=== PATIENT | female | born 1955 | race Caucasian/White ===

== ENCOUNTER 2022-04-03 16:46 | Observation (INO) ==
[2022-04-03] MEDS ORDERED: IOPAMIDOL 100 ML BOTTLE IV ONE (16:47)
[2022-04-03 17:12] LABS: POC Calcium, Ionized 1.23 (1.16-1.32); POC Creatinine 0.7 (0.6-1.2); POC Potassium 3.4 (3.3-5.1)
[2022-04-03] MEDS ORDERED: NALOXONE HCL 0.4 MG/ML VIAL IV ONE ×2 (17:50→17:51)
[2022-04-03] MEDS ORDERED: LORazepam 2 MG/ML VIAL IV ONE ×2 (18:02→18:48)
[2022-04-03 18:05] LABS: Basophils # (Auto) 0.03 K/mcL (0.00-0.30); Basophils % (Auto) 0.5 % (0.0-2.0); Eosinophils # (Auto) 0.09 K/mcL (0.00-0.70); Eosinophils % (Auto) 1.5 % (0.0-7.0); Hematocrit 32.7 % (34.1-44.9); Hemoglobin 11.3 g/dL (11.2-15.7); Lymphocytes # (Auto) 2.11 K/mcL (1.50-4.80); Lymphocytes % (Auto) 34.3 % (15.5-49.0); Mean Cell Volume 92.9 fL (80.0-100.0); Mean Corpuscular HGB Conc 34.6 g/dL (31.0-36.0); Mean Platelet Volume 10.3 fL (8.8-12.5); Monocytes # (Auto) 0.49 K/mcL (0.10-0.90); Neutrophils % (Auto) 55.2 % (38.0-78.0); Platelet Count 198 K/mcL (140-440); RBC 3.52 M/mcL (3.59-5.38); Red Cell Distribution Width 15.2 % (11.5-14.5); WBC 6.2 K/mcL (4.5-11.0)
--- NOTE | 2022-04-03 18:05 | Cat Scan Report ---
CLINICAL INFORMATION: Acute mental status change COMPARISON: None. TECHNIQUE: 2.5 mm helical slices were obtained in the skull base to vertex. Following reconstruction, axial reformatted images were reviewed at bone and parenchymal windows. The exam was performed using radiation dose optimization techniques including, but not limited to, automated exposure control, adjustment of the mA and/or kV according to patient size and use of iterative reconstruction technique. FINDINGS: The ventricles, sulci, fissures, and cisterns are symmetrically enlarged compatible with mild age-related atrophy. No extra-axial fluid collections are identified. Mild patchy chronic ischemic changes, in the deep cerebral white matter, are expected for age. Small remote infarct seen seen in the left frontal lobe near vertex. There is no hemorrhage, mass effect, or edema. Bone windows show no osseous abnormality. IMPRESSION: Mild atrophy and chronic ischemic changes in the deep cerebral white matter-expected for age. 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 No intracranial hemorrhage or other acute finding Moderate cerumen the left external auditory meatus Interpreted and Authenticated by: Blayne Villaseñor 04/03/22
[2022-04-03 18:11] LABS: Amphetamine Screen,Urine None detected; Barbiturate Screen,Urine Suspect positive; Benzodiazepines Screen,Urine None detected; Cannabinoid Screen,Urine None detected; Cocaine Screen,Urine None detected; Opiate Screen,Urine None detected; Oxycodone, Urine Screen None detected; Phencyclidine Screen,Urine None detected
[2022-04-03 18:12] LABS: Appearance,Urine CLEAR (Clear); Bilirubin,Urine NEGATIVE (Negative); Color,Urine YELLOW; Culture Indicated,Urine yes; Glucose,Urine (UA) NEGATIVE (Negative); Ketones,Urine NEGATIVE (Negative); Leukocyte Esterase,Urine TRACE /uL (Negative); Mucus,Urine FEW /hpf; Nitrate,Urine NEGATIVE (Negative); Protein,Urine NEGATIVE (Negative); Urine Blood TRACE-LYSED ery/mcL (Negative); Urine RBC 5 /hpf (0-3); Urine Squamous Epithelial Cell 0 /hpf (0-4); Urine WBC 12 /hpf (0-4); Urobilinogen,Urine Normal
[2022-04-03 18:16] LABS: Alcohol, Blood < 10.0 mg/dL; Alcohol,Blood < 0.010 gm/dL (<0.010)
[2022-04-03 18:31] LABS: ALT/SGPT 11 U/L (<40); AST/SGOT 16 U/L (<32); Albumin 3.1 gm/dL (3.2-5.2); Alkaline Phosphatase 54 U/L (39-117); Bilirubin,Direct < 0.2 mg/dL (0-0.3); Bilirubin,Total 0.3 mg/dL (0.1-1.0); Globulin 2.3 gm/dL (2.2-3.7); Thyroid Stimulating Hormone 6.31 uIU/mL (0.27-5.01)
--- NOTE | 2022-04-03 19:27 | Emergency Department Note ---
HPI General Chief complaint: Psychiatric Symptoms Stated complaint: unresponsive Time Seen by Provider: 04/03/22 17:06 Source: EMS Mode of arrival: EMS History of Present Illness HPI Narrative: Narrative: Patient presents to the emergency department via EMS found unresponsive. The patient has been acting bizarrely for the last several days per her report. There is prior notes of the patient being in our emergency department 2 days ago for similar, less severe symptoms. It appears that the etiology was likely psychiatric. Patient was also seen at [facility] and was having bizarre, anglican fixations. Today patient is unresponsive she had normal blood glucose for EMS signs. Per report from the patient's son over the phone the patient does not have access to her own medications he has no concerns that she got into illicit substances or took excess of her prescribed medications. There has been no recent infectious symptoms patient was treated for urinary tract infection last week. Related Data Home Medications Medication Instructions Recorded Confirmed baclofen 10 mg tablet 10 mg PO Q8H PRN Pain 02/27/19 04/03/22 duloxetine 30 mg capsule,delayed 60 mg PO QDAY 02/27/19 04/03/22 release (Cymbalta) albuterol 90 mcg/actuation aerosol 90 mcg inhalation QID 04/03/22 04/03/22 inhaler allopurinol 300 mg tablet 300 mg PO QDAY 04/03/22 04/03/22 hydroxyzine HCl 25 mg tablet 25 mg PO TID PRN Anxiety 04/03/22 04/03/22 hydroxyzine HCl 25 mg tablet 25 mg PO TID PRN Anxiety 04/03/22 04/03/22 levothyroxine 137 mcg tablet 137 mcg PO QDAY 04/03/22 04/03/22 nitrofurantoin 100 mg capsule 100 mg PO BID 04/03/22 04/03/22 olmesartan 20 mg tablet 20 mg PO QDAY 04/03/22 04/03/22 pantoprazole 40 mg tablet,delayed 40 mg PO QDAY 04/03/22 04/03/22 release pantoprazole 40 mg tablet,delayed 40 mg PO QDAY 04/03/22 04/03/22 release primidone 50 mg tablet 50 mg PO TID 04/03/22 04/03/22 trazodone 50 mg tablet 50 mg PO QHS 04/03/22 04/03/22 Previous Rx's Medication Instructions Recorded hydrocodone 7.5 mg-acetaminophen 1 tab PO Q4H #150 tabs 03/12/19 325 mg tablet tramadol 50 mg tablet 50 mg PO QID PRN pain #240 tabs 03/12/19 Allergies Allergy/AdvReac Type Severity Reaction Status Date / Time Opioids - Morphine Analogues Allergy Severe Unknown Verified 03/21/22 17:40 latex Allergy Rash Verified 03/21/22 17:40 hydromorphone [From Dilaudid] AdvReac Unknown Other Verified 03/21/22 17:40 Codeine Sulfate Allergy Severe unknown Uncoded 06/16/21 16:35 Lyrica (Pregabalin Caps) Allergy Severe Dizziness, Uncoded 06/16/21 16:35 confusion band-aids AdvReac Rash Uncoded 06/16/21 16:35 Review of Systems ROS ROS Narrative: Narrative: Limitations: ROS unobtainable due to patients medical condition PFSH Narrative Patient History Narrative: Narrative: Medical/Surgical/Family History All Active Problems (Updated 04/04/22 @ 07:38 by Amish Chris MD) Nausea & vomiting (Acute) Fatigue (Acute) Dyspnea (Acute) Pain in toe (Acute) Adult failure to thrive (Acute) Catatonia (Acute) Viral syndrome (Acute) Chest pain (Acute) Acute pelvic pain (Acute) Excessive cerumen in both ear canals (Acute) Sinusitis, acute (Acute) Muscle spasm (Acute) Cellulitis of left foot (Acute) Left foot pain (Acute) Rib pain on right side (Acute) Hay fever (Chronic) Anxiety and depression (Chronic) Poor sleep (Chronic) Irritable bowel syndrome (Chronic) Benign hypertension (Chronic) GERD (gastroesophageal reflux disease) (Chronic) Vitamin D deficiency (Chronic) Chronic fatigue syndrome (Chronic) Abnormal weight loss (Chronic) Claudication of both lower extremities (Chronic) Osteoporosis of lumbar spine (Chronic) Dyspareunia (Chronic) Stomatitis (Chronic) Hyperglycemia (Chronic) Right knee pain (Chronic) Migraine (Chronic) Hypoglycemia (Chronic) Anemia (Chronic) Unspecified injury of thorax, initial encounter (Chronic) Bilateral ankle pain (Chronic) Double vision (Chronic) Right carpal tunnel syndrome (Chronic) Fibromyalgia (Chronic) Left eye pain (Chronic) Persistent headaches (Chronic) Acute low back pain (Chronic) Fatigue (Chronic) High risk medication use (Chronic) Chronic pain syndrome (Chronic) Anxiety reaction (Chronic) Pain in joint of right wrist (Chronic) Insomnia (Chronic) Restless leg syndrome (Chronic) Palpitations (Chronic) Prediabetes (Chronic) Hyperlipidemia (Chronic) Eczema (Chronic) B12 deficiency (Chronic) Hx of sleep apnea (Chronic) Memory deficit (Chronic) Dry eye syndrome, bilateral (Chronic) Medical History Abnormal weight loss Acute low back pain Anemia Anxiety and depression Anxiety reaction Arm fracture, left B12 deficiency Benign hypertension Bilateral ankle pain Chest pain Chronic fatigue syndrome Chronic pain syndrome Claudication of both lower extremities Double vision Dry eye syndrome, bilateral Dyspareunia Eczema Excessive cerumen in both ear canals Fatigue Fibromyalgia GERD (gastroesophageal reflux disease) Hay fever High risk medication use History of left heart catheterization (09/24/18) Outpatient, [facility] Hx of sleep apnea Hyperglycemia Hyperlipidemia Hypoglycemia Insomnia Irritable bowel syndrome Left eye pain Lower abdominal pain Memory deficit Migraine Nausea alone Osteoporosis of lumbar spine Pain in joint of right wrist Pain in right ankle and joints of right foot Palpitations Persistent headaches Poor sleep Prediabetes Restless leg syndrome Right carpal tunnel syndrome Right knee pain Sinusitis, acute Stomatitis Unspecified injury of thorax, initial encounter Viral syndrome Vitamin D deficiency Surgical History History of bladder surgery History of carpal tunnel surgery of left wrist (~2011) History of carpal tunnel surgery of right wrist (~2011) History of gastric bypass (~2007) History of hysterectomy (~1993) Family History Mother , age 74 Osteoporosis Myocardial infarction Father , age 73 High blood pressure Kidney disease Heart disease Grandmother Glaucoma maternal Heart disease maternal High blood pressure maternal Diabetes maternal Social History Smoking Status: Former smoker Alcohol Intake Frequency: does not drink Substance Use: does not use Exam Narrative Narrative: Narrative: Vital signs noted General: Unresponsive, eyes are closed HEENT: NCAT pupils 5 mm equal round reactive to light symmetrically Neck: Supple, trachea midline Cardiovascular: RRR. No murmur. No rubs. No gallops. Respiratory: No respiratory distress. Breath sounds equal. Lungs clear. Gastrointestinal: Soft. No tenderness Musculoskeletal: No pain. No soft tissue swelling. Good ROM. No signs injury Skin: Warm. Dry. No rash Neurologic: Patient has normal symmetric patellar reflexes there is no clonus at the ankle, patient does not open her eyes and she resists eyelid opening. She has apparent flaccidity to all 4 affected extremities. Course Vital Signs Vital signs: Vital Signs Temperature 99.1 F H 04/03/22 16:53 Pulse Rate 70 04/03/22 16:53 Respiratory Rate 14 04/03/22 16:53 Blood Pressure 198/80 04/03/22 16:53 Pulse Oximetry (%) 98 04/03/22 16:53 Oxygen Delivery Method 04/03/22 16:53 Temperature 99.1 F H 04/03/22 16:53 Pulse Rate 88 04/04/22 15:47 Respiratory Rate 16 04/04/22 13:54 Blood Pressure 147/73 04/04/22 15:00 Pulse Oximetry (%) 93 04/04/22 15:47 Oxygen Delivery Method 04/03/22 16:53 MDM MDM Narrative Medical decision making narrative: Narrative: Patient presents to the emergency department with unresponsiveness. She has normal electrolytes venous blood gas and vital signs. Patient's CT scan of her brain shows no acute findings she does have a remote infarct. Differential includes but is not limited to CVA, intracranial hemorrhage, catato melida, occult infection, medication overdose. Review of patient's prior labs felt that her symptoms are likely related to catatonia after initial medical work-up had been unremarkable. The patient was given 1 mg of Ativan and would shake her head when asked questions she would also squeeze hands, she would wiggle her bilateral toes. She still would not open her eyes when commanded. Patient will likely need extensive psychiatric consultation. Patient is signed out to oncoming physician. Lab Data Result diagrams: 04/03/22 17:27 Labs: Lab Results 04/03/22 04/03/22 04/03/22 Range/Units 17:07 17:08 17:25 WBC (4.5-11.0) K/mcL RBC (3.59-5.38) M/mcL Hgb (11.2-15.7) g/dL Hct (34.1-44.9) % POC Hct 35.0 L (36-48) MCV (80.0-100.0) fL MCH (26.0-34.0) pg MCHC (31.0-36.0) g/dL RDW (11.5-14.5) % Plt Count (140-440) K/mcL MPV (8.8-12.5) fL Immature Gran % (Auto) (0.0-0.5) % Neut % (Auto) (38.0-78.0) % Lymph % (Auto) (15.5-49.0) % [place] % (Auto) (1.0-12.0) % Eos % (Auto) (0.0-7.0) % Baso % (Auto) (0.0-2.0) % Lymph # (Auto) (1.50-4.80) K/mcL [place] # (Auto) (0.10-0.90) K/mcL Eos # (Auto) (0.00-0.70) K/mcL Baso # (Auto) (0.00-0.30) K/mcL Immature Gran # (0.00-0.05) K/mcl Absolute Neutrophils (1.80-8.00) K/mcL POC VBG pH 7.39 (7.32-7.42) POC VBG pCO2 at Temp 48.7 (41-51) POC VBG pO2 25 (25-40) POC VBG HCO3 29.5 H (24-28) POC VBG Total CO2 31.0 H (25-29) POC Venous O2 Sat 43.0 (40-70) POC VBG Base Excess 5.0 H* (-2-2) VBG Lactic Acid 0.7 (0.5-2) POC Sodium 136 (133-145) POC Potassium 3.4 (3.3-5.1) POC Chloride 97 (96-108) POC Total CO2 28.0 (22-30) POC BUN 8 (6-20) POC Creatinine 0.7 (0.6-1.2) POC Glucose 88 (70-105) POC WB Ioniz Calcium 1.23 (1.16-1.32) Total Bilirubin (0.1-1.0) mg/dL Direct Bilirubin (0-0.3) mg/dL AST (<32) U/L ALT (<40) U/L Alkaline Phosphatase (39-117) U/L Ammonia (11-51) umol/L Troponin T (<0.03) ng/mL Total Protein (5.9-8.4) gm/dL Albumin (3.2-5.2) gm/dL Globulin (2.2-3.7) gm/dL Lipase (7-60) U/L TSH (0.27-5.01) uIU/mL Urine Color Urine Appearance (Clear) Urine pH (5.0-9.0) Ur Specific Bishop (1.000-1.035) Urine Protein (Negative) mg/dL Urine Glucose (UA) (Negative) mg/dL Urine Ketones (Negative) mg/dL Urine Occult Blood (Negative) lili/mcL Urine Nitrate (Negative) Urine Bilirubin (Negative) mg/dL Urine Urobilinogen mg/dL Ur Leukocyte Esterase (Negative) /uL Urine RBC (0-3) /hpf Urine WBC (0-4) /hpf Ur Squamous Epith Cells (0-4) /hpf Urine Bacteria (0) /hpf Urine Mucus (None) /hpf Ur Culture Indicated? Urine Opiates Screen Ur Opiates Confirm Ur Oxycodone Screen U Oxycod/Oxymor Confirm Urine Methadone Screen Ur Methadone Confirm Ur Barbiturates Screen Ur Phencyclidine Scrn Urine PCP Confirm Ur Amphetamines Screen U Amphetamines Confirm U Benzodiazepines Scrn Ur Benzodiazepine, Qnt Urine Cocaine Screen Urine Cocaine Confirm U Cannabinoids Confirm U Marijuana (THC) Screen Ethyl Alcohol mg/dL mg/dL Ethyl Alcohol g/dL (<0.010) gm/dL POC Troponin I < 0.02 (0.00-0.08) 04/03/22 04/03/22 04/03/22 Range/Units 17:26 17:27 17:27 WBC 6.2 (4.5-11.0) K/mcL RBC 3.52 L (3.59-5.38) M/mcL Hgb 11.3 (11.2-15.7) g/dL Hct 32.7 L (34.1-44.9) % POC Hct (36-48) MCV 92.9 (80.0-100.0) fL MCH 32.1 (26.0-34.0) pg MCHC 34.6 (31.0-36.0) g/dL RDW 15.2 H (11.5-14.5) % Plt Count 198 (140-440) K/mcL MPV 10.3 (8.8-12.5) fL Immature Gran % (Auto) 0.5 (0.0-0.5) % Neut % (Auto) 55.2 (38.0-78.0) % Lymph % (Auto) 34.3 (15.5-49.0) % [place] % (Auto) 8.0 (1.0-12.0) % Eos % (Auto) 1.5 (0.0-7.0) % Baso % (Auto) 0.5 (0.0-2.0) % Lymph # (Auto) 2.11 (1.50-4.80) K/mcL [place] # (Auto) 0.49 (0.10-0.90) K/mcL Eos # (Auto) 0.09 (0.00-0.70) K/mcL Baso # (Auto) 0.03 (0.00-0.30) K/mcL Immature Gran # 0.03 (0.00-0.05) K/mcl Absolute Neutrophils 3.40 (1.80-8.00) K/mcL POC VBG pH (7.32-7.42) POC VBG pCO2 at Temp (41-51) POC VBG pO2 (25-40) POC VBG HCO3 (24-28) POC VBG Total CO2 (25-29) POC Venous O2 Sat (40-70) POC VBG Base Excess (-2-2) VBG Lactic Acid (0.5-2) POC Sodium (133-145) POC Potassium (3.3-5.1) POC Chloride (96-108) POC Total CO2 (22-30) POC BUN (6-20) POC Creatinine (0.6-1.2) POC Glucose (70-105) POC WB Ioniz Calcium (1.16-1.32) Total Bilirubin (0.1-1.0) mg/dL Direct Bilirubin (0-0.3) mg/dL AST (<32) U/L ALT (<40) U/L Alkaline Phosphatase (39-117) U/L Ammonia (11-51) umol/L Troponin T < 0.01 (<0.03) ng/mL Total Protein (5.9-8.4) gm/dL Albumin (3.2-5.2) gm/dL Globulin (2.2-3.7) gm/dL Lipase (7-60) U/L TSH (0.27-5.01) uIU/mL Urine Color Urine Appearance (Clear) Urine pH (5.0-9.0) Ur Specific Bishop (1.000-1.035) Urine Protein (Negative) mg/dL Urine Glucose (UA) (Negative) mg/dL Urine Ketones (Negative) mg/dL Urine Occult Blood (Negative) lili/mcL Urine Nitrate (Negative) Urine Bilirubin (Negative) mg/dL Urine Urobilinogen mg/dL Ur Leukocyte Esterase (Negative) /uL Urine RBC (0-3) /hpf Urine WBC (0-4) /hpf Ur Squamous Epith Cells (0-4) /hpf Urine Bacteria (0) /hpf Urine Mucus (None) /hpf Ur Culture Indicated? Urine Opiates Screen Ur Opiates Confirm Ur Oxycodone Screen U Oxycod/Oxymor Confirm Urine Methadone Screen Ur Methadone Confirm Ur Barbiturates Screen Ur Phencyclidine Scrn Urine PCP Confirm Ur Amphetamines Screen U Amphetamines Confirm U Benzodiazepines Scrn Ur Benzodiazepine, Qnt Urine Cocaine Screen Urine Cocaine Confirm U Cannabinoids Confirm U Marijuana (THC) Screen Ethyl Alcohol mg/dL < 10.0 mg/dL Ethyl Alcohol g/dL < 0.010 (<0.010) gm/dL POC Troponin I (0.00-0.08) 04/03/22 04/03/22 04/03/22 Range/Units 17:27 17:32 17:39 WBC (4.5-11.0) K/mcL RBC (3.59-5.38) M/mcL Hgb (11.2-15.7) g/dL Hct (34.1-44.9) % POC Hct (36-48) MCV (80.0-100.0) fL MCH (26.0-34.0) pg MCHC (31.0-36.0) g/dL RDW (11.5-14.5) % Plt Count (140-440) K/mcL MPV (8.8-12.5) fL Immature Gran % (Auto) (0.0-0.5) % Neut % (Auto) (38.0-78.0) % Lymph % (Auto) (15.5-49.0) % [place] % (Auto) (1.0-12.0) % Eos % (Auto) (0.0-7.0) % Baso % (Auto) (0.0-2.0) % Lymph # (Auto) (1.50-4.80) K/mcL [place] # (Auto) (0.10-0.90) K/mcL Eos # (Auto) (0.00-0.70) K/mcL Baso # (Auto) (0.00-0.30) K/mcL Immature Gran # (0.00-0.05) K/mcl Absolute Neutrophils (1.80-8.00) K/mcL POC VBG pH (7.32-7.42) POC VBG pCO2 at Temp (41-51) POC VBG pO2 (25-40) POC VBG HCO3 (24-28) POC VBG Total CO2 (25-29) POC Venous O2 Sat (40-70) POC VBG Base Excess (-2-2) VBG Lactic Acid (0.5-2) POC Sodium (133-145) POC Potassium (3.3-5.1) POC Chloride (96-108) POC Total CO2 (22-30) POC BUN (6-20) POC Creatinine (0.6-1.2) POC Glucose (70-105) POC WB Ioniz Calcium (1.16-1.32) Total Bilirubin 0.3 (0.1-1.0) mg/dL Direct Bilirubin < 0.2 (0-0.3) mg/dL AST 16 (<32) U/L ALT 11 (<40) U/L Alkaline Phosphatase 54 (39-117) U/L Ammonia (11-51) umol/L Troponin T (<0.03) ng/mL Total Protein 5.4 L (5.9-8.4) gm/dL Albumin 3.1 L (3.2-5.2) gm/dL Globulin 2.3 (2.2-3.7) gm/dL Lipase 26 (7-60) U/L TSH 6.31 H (0.27-5.01) uIU/mL Urine Color Yellow Urine Appearance Clear (Clear) Urine pH 6.0 (5.0-9.0) Ur Specific Bishop 1.010 (1.000-1.035) Urine Protein Negative (Negative) mg/dL Urine Glucose (UA) Negative (Negative) mg/dL Urine Ketones Negative (Negative) mg/dL Urine Occult Blood Trace-lysed A (Negative) lili/mcL Urine Nitrate Negative (Negative) Urine Bilirubin Negative (Negative) mg/dL Urine Urobilinogen Normal mg/dL Ur Leukocyte Esterase Trace A (Negative) /uL Urine RBC 5 H (0-3) /hpf Urine WBC 12 H (0-4) /hpf Ur Squamous Epith Cells 0 (0-4) /hpf Urine Bacteria None (0) /hpf Urine Mucus Few A (None) /hpf Ur Culture Indicated? yes Urine Opiates Screen None detected Ur Opiates Confirm TNP Ur Oxycodone Screen None detected U Oxycod/Oxymor Confirm TNP Urine Methadone Screen None detected Ur Methadone Confirm TNP Ur Barbiturates Screen Suspect positive A Ur Phencyclidine Scrn None detected Urine PCP Confirm TNP Ur Amphetamines Screen None detected U Amphetamines Confirm TNP U Benzodiazepines Scrn None detected Ur Benzodiazepine, Qnt TNP Urine Cocaine Screen None detected Urine Cocaine Confirm TNP U Cannabinoids Confirm TNP U Marijuana (THC) Screen None detected Ethyl Alcohol mg/dL mg/dL Ethyl Alcohol g/dL (<0.010) gm/dL POC Troponin I (0.00-0.08) 04/03/22 Range/Units 18:09 WBC (4.5-11.0) K/mcL RBC (3.59-5.38) M/mcL Hgb (11.2-15.7) g/dL Hct (34.1-44.9) % POC Hct (36-48) MCV (80.0-100.0) fL MCH (26.0-34.0) pg MCHC (31.0-36.0) g/dL RDW (11.5-14.5) % Plt Count (140-440) K/mcL MPV (8.8-12.5) fL Immature Gran % (Auto) (0.0-0.5) % Neut % (Auto) (38.0-78.0) % Lymph % (Auto) (15.5-49.0) % [place] % (Auto) (1.0-12.0) % Eos % (Auto) (0.0-7.0) % Baso % (Auto) (0.0-2.0) % Lymph # (Auto) (1.50-4.80) K/mcL [place] # (Auto) (0.10-0.90) K/mcL Eos # (Auto) (0.00-0.70) K/mcL Baso # (Auto) (0.00-0.30) K/mcL Immature Gran # (0.00-0.05) K/mcl Absolute Neutrophils (1.80-8.00) K/mcL POC VBG pH (7.32-7.42) POC VBG pCO2 at Temp (41-51) POC VBG pO2 (25-40) POC VBG HCO3 (24-28) POC VBG Total CO2 (25-29) POC Venous O2 Sat (40-70) POC VBG Base Excess (-2-2) VBG Lactic Acid (0.5-2) POC Sodium (133-145) POC Potassium (3.3-5.1) POC Chloride (96-108) POC Total CO2 (22-30) POC BUN (6-20) POC Creatinine (0.6-1.2) POC Glucose (70-105) POC WB Ioniz Calcium (1.16-1.32) Total Bilirubin (0.1-1.0) mg/dL Direct Bilirubin (0-0.3) mg/dL AST (<32) U/L ALT (<40) U/L Alkaline Phosphatase (39-117) U/L Ammonia 14 (11-51) umol/L Troponin T (<0.03) ng/mL Total Protein (5.9-8.4) gm/dL Albumin (3.2-5.2) gm/dL Globulin (2.2-3.7) gm/dL Lipase (7-60) U/L TSH (0.27-5.01) uIU/mL Urine Color Urine Appearance (Clear) Urine pH (5.0-9.0) Ur Specific Bishop (1.000-1.035) Urine Protein (Negative) mg/dL Urine Glucose (UA) (Negative) mg/dL Urine Ketones (Negative) mg/dL Urine Occult Blood (Negative) lili/mcL Urine Nitrate (Negative) Urine Bilirubin (Negative) mg/dL Urine Urobilinogen mg/dL Ur Leukocyte Esterase (Negative) /uL Urine RBC (0-3) /hpf Urine WBC (0-4) /hpf Ur Squamous Epith Cells (0-4) /hpf Urine Bacteria (0) /hpf Urine Mucus (None) /hpf Ur Culture Indicated? Urine Opiates Screen Ur Opiates Confirm Ur Oxycodone Screen U Oxycod/Oxymor Confirm Urine Methadone Screen Ur Methadone Confirm Ur Barbiturates Screen Ur Phencyclidine Scrn Urine PCP Confirm Ur Amphetamines Screen U Amphetamines Confirm U Benzodiazepines Scrn Ur Benzodiazepine, Qnt Urine Cocaine Screen Urine Cocaine Confirm U Cannabinoids Confirm U Marijuana (THC) Screen Ethyl Alcohol mg/dL mg/dL Ethyl Alcohol g/dL (<0.010) gm/dL POC Troponin I (0.00-0.08) ED POC Tests ED POC Tests: CHRISTOPHER - SARS Antigen Negative Discharge Plan Patient/Caregiver Discharge Instructions Pt seen by [employer]/[facility] only: No Clinical Impression: Catatonia Patient Disposition: Still a Patient Condition: Critical Follow up with: Chandan Sharpe MD [Primary Care Provider] - Prescriptions: No Action hydrocodone-acetaminophen 7.5-325 mg tablet 1 tab PO Q4H Qty: 150 0RF Rx Instructions: Max 5 a day tramadol 50 mg tablet 50 mg PO QID PRN (Reason: pain) Qty: 240 0RF duloxetine [Cymbalta] 30 mg capsule,delayed release(DR/EC) 60 mg PO QDAY Rx Instructions: 30 mg (3 caps) PO daily; baclofen 10 mg tablet 10 mg PO Q8H PRN (Reason: Pain) primidone 50 mg Tablet 50 mg PO TID levothyroxine 137 mcg Tablet 137 mcg PO QDAY trazodone 50 mg Tablet 50 mg PO QHS nitrofurantoin 100 mg Capsule 100 mg PO BID Rx Instructions: must administer with a meal/food pantoprazole 40 mg Tablet,Delayed Release (Dr/Ec) 40 mg PO QDAY pantoprazole 40 mg Tablet,Delayed Release (Dr/Ec) 40 mg PO QDAY hydroxyzine HCl 25 mg Tablet 25 mg PO TID PRN (Reason: Anxiety) hydroxyzine HCl 25 mg Tablet 25 mg PO TID PRN (Reason: Anxiety) allopurinol 300 mg Tablet 300 mg PO QDAY albuterol 90 mcg/actuation Aerosol 90 mcg INHALATION QID olmesartan 20 mg Tablet 20 mg PO QDAY
--- NOTE | 2022-04-03 19:57 | Emergency Department Note ---
Course Course Course Narrative: Patient is a 66-year-old female signed out to me by Dr. Harding. Briefly, patient presented mostly unresponsive. Her work-up mostly unremarkable other than a mildly elevated TSH, trace leukocyte esterase, and barbiturates on UDS. There was concern for catatonia, so patient was given Ativan and did have some improvement. She was given another dose with further improvement. Patient was then signed out to me. Vital Signs Vital signs: Vital Signs Temperature 99.1 F H 04/03/22 16:53 Pulse Rate 70 04/03/22 16:53 Respiratory Rate 14 04/03/22 16:53 Blood Pressure 198/80 04/03/22 16:53 Pulse Oximetry (%) 98 04/03/22 16:53 Oxygen Delivery Method 04/03/22 16:53 Temperature 99.1 F H 04/03/22 16:53 Pulse Rate 62 04/04/22 07:07 Respiratory Rate 18 04/04/22 07:07 Blood Pressure 158/76 04/04/22 06:31 Pulse Oximetry (%) 94 04/04/22 07:07 Oxygen Delivery Method 04/03/22 16:53 MDM MDM Narrative Medical decision making narrative: Narrative: Patient is a 66-year-old female who presented due to being mostly unresponsive. [facility] was called due to previous concern for catatonia, with intermittent visit to [facility] with same concerns, and return here with patient's unresponsiveness. They stated that they are reaching out to inpatient psych facilities due to concern for catatonia. Patient is pending placement. Patient has been signed out to Dr. Goddard. Lab Data Result diagrams: 04/03/22 17:27 Labs: Lab Results 04/03/22 04/03/22 04/03/22 Range/Units 17:07 17:08 17:25 WBC (4.5-11.0) K/mcL RBC (3.59-5.38) M/mcL Hgb (11.2-15.7) g/dL Hct (34.1-44.9) % POC Hct 35.0 L (36-48) MCV (80.0-100.0) fL MCH (26.0-34.0) pg MCHC (31.0-36.0) g/dL RDW (11.5-14.5) % Plt Count (140-440) K/mcL MPV (8.8-12.5) fL Immature Gran % (Auto) (0.0-0.5) % Neut % (Auto) (38.0-78.0) % Lymph % (Auto) (15.5-49.0) % [place] % (Auto) (1.0-12.0) % Eos % (Auto) (0.0-7.0) % Baso % (Auto) (0.0-2.0) % Lymph # (Auto) (1.50-4.80) K/mcL [place] # (Auto) (0.10-0.90) K/mcL Eos # (Auto) (0.00-0.70) K/mcL Baso # (Auto) (0.00-0.30) K/mcL Immature Gran # (0.00-0.05) K/mcl Absolute Neutrophils (1.80-8.00) K/mcL POC VBG pH 7.39 (7.32-7.42) POC VBG pCO2 at Temp 48.7 (41-51) POC VBG pO2 25 (25-40) POC VBG HCO3 29.5 H (24-28) POC VBG Total CO2 31.0 H (25-29) POC Venous O2 Sat 43.0 (40-70) POC VBG Base Excess 5.0 H* (-2-2) VBG Lactic Acid 0.7 (0.5-2) POC Sodium 136 (133-145) POC Potassium 3.4 (3.3-5.1) POC Chloride 97 (96-108) POC Total CO2 28.0 (22-30) POC BUN 8 (6-20) POC Creatinine 0.7 (0.6-1.2) POC Glucose 88 (70-105) POC WB Ioniz Calcium 1.23 (1.16-1.32) Total Bilirubin (0.1-1.0) mg/dL Direct Bilirubin (0-0.3) mg/dL AST (<32) U/L ALT (<40) U/L Alkaline Phosphatase (39-117) U/L Ammonia (11-51) umol/L Troponin T (<0.03) ng/mL Total Protein (5.9-8.4) gm/dL Albumin (3.2-5.2) gm/dL Globulin (2.2-3.7) gm/dL Lipase (7-60) U/L TSH (0.27-5.01) uIU/mL Urine Color Urine Appearance (Clear) Urine pH (5.0-9.0) Ur Specific [place] (1.000-1.035) Urine Protein (Negative) mg/dL Urine Glucose (UA) (Negative) mg/dL Urine Ketones (Negative) mg/dL Urine Occult Blood (Negative) lili/mcL Urine Nitrate (Negative) Urine Bilirubin (Negative) mg/dL Urine Urobilinogen mg/dL Ur Leukocyte Esterase (Negative) /uL Urine RBC (0-3) /hpf Urine WBC (0-4) /hpf Ur Squamous Epith Cells (0-4) /hpf Urine Bacteria (0) /hpf Urine Mucus (None) /hpf Ur Culture Indicated? Urine Opiates Screen Ur Opiates Confirm Ur Oxycodone Screen U Oxycod/Oxymor Confirm Urine Methadone Screen Ur Methadone Confirm Ur Barbiturates Screen Ur Phencyclidine Scrn Urine PCP Confirm Ur Amphetamines Screen U Amphetamines Confirm U Benzodiazepines Scrn Ur Benzodiazepine, Qnt Urine Cocaine Screen Urine Cocaine Confirm U Cannabinoids Confirm U Marijuana (THC) Screen Ethyl Alcohol mg/dL mg/dL Ethyl Alcohol g/dL (<0.010) gm/dL POC Troponin I < 0.02 (0.00-0.08) 04/03/22 04/03/22 04/03/22 Range/Units 17:26 17:27 17:27 WBC 6.2 (4.5-11.0) K/mcL RBC 3.52 L (3.59-5.38) M/mcL Hgb 11.3 (11.2-15.7) g/dL Hct 32.7 L (34.1-44.9) % POC Hct (36-48) MCV 92.9 (80.0-100.0) fL MCH 32.1 (26.0-34.0) pg MCHC 34.6 (31.0-36.0) g/dL RDW 15.2 H (11.5-14.5) % Plt Count 198 (140-440) K/mcL MPV 10.3 (8.8-12.5) fL Immature Gran % (Auto) 0.5 (0.0-0.5) % Neut % (Auto) 55.2 (38.0-78.0) % Lymph % (Auto) 34.3 (15.5-49.0) % [place] % (Auto) 8.0 (1.0-12.0) % Eos % (Auto) 1.5 (0.0-7.0) % Baso % (Auto) 0.5 (0.0-2.0) % Lymph # (Auto) 2.11 (1.50-4.80) K/mcL [place] # (Auto) 0.49 (0.10-0.90) K/mcL Eos # (Auto) 0.09 (0.00-0.70) K/mcL Baso # (Auto) 0.03 (0.00-0.30) K/mcL Immature Gran # 0.03 (0.00-0.05) K/mcl Absolute Neutrophils 3.40 (1.80-8.00) K/mcL POC VBG pH (7.32-7.42) POC VBG pCO2 at Temp (41-51) POC VBG pO2 (25-40) POC VBG HCO3 (24-28) POC VBG Total CO2 (25-29) POC Venous O2 Sat (40-70) POC VBG Base Excess (-2-2) VBG Lactic Acid (0.5-2) POC Sodium (133-145) POC Potassium (3.3-5.1) POC Chloride (96-108) POC Total CO2 (22-30) POC BUN (6-20) POC Creatinine (0.6-1.2) POC Glucose (70-105) POC WB Ioniz Calcium (1.16-1.32) Total Bilirubin (0.1-1.0) mg/dL Direct Bilirubin (0-0.3) mg/dL AST (<32) U/L ALT (<40) U/L Alkaline Phosphatase (39-117) U/L Ammonia (11-51) umol/L Troponin T < 0.01 (<0.03) ng/mL Total Protein (5.9-8.4) gm/dL Albumin (3.2-5.2) gm/dL Globulin (2.2-3.7) gm/dL Lipase (7-60) U/L TSH (0.27-5.01) uIU/mL Urine Color Urine Appearance (Clear) Urine pH (5.0-9.0) Ur Specific [place] (1.000-1.035) Urine Protein (Negative) mg/dL Urine Glucose (UA) (Negative) mg/dL Urine Ketones (Negative) mg/dL Urine Occult Blood (Negative) lili/mcL Urine Nitrate (Negative) Urine Bilirubin (Negative) mg/dL Urine Urobilinogen mg/dL Ur Leukocyte Esterase (Negative) /uL Urine RBC (0-3) /hpf Urine WBC (0-4) /hpf Ur Squamous Epith Cells (0-4) /hpf Urine Bacteria (0) /hpf Urine Mucus (None) /hpf Ur Culture Indicated? Urine Opiates Screen Ur Opiates Confirm Ur Oxycodone Screen U Oxycod/Oxymor Confirm Urine Methadone Screen Ur Methadone Confirm Ur Barbiturates Screen Ur Phencyclidine Scrn Urine PCP Confirm Ur Amphetamines Screen U Amphetamines Confirm U Benzodiazepines Scrn Ur Benzodiazepine, Qnt Urine Cocaine Screen Urine Cocaine Confirm U Cannabinoids Confirm U Marijuana (THC) Screen Ethyl Alcohol mg/dL < 10.0 mg/dL Ethyl Alcohol g/dL < 0.010 (<0.010) gm/dL POC Troponin I (0.00-0.08) 04/03/22 04/03/22 04/03/22 Range/Units 17:27 17:32 17:39 WBC (4.5-11.0) K/mcL RBC (3.59-5.38) M/mcL Hgb (11.2-15.7) g/dL Hct (34.1-44.9) % POC Hct (36-48) MCV (80.0-100.0) fL MCH (26.0-34.0) pg MCHC (31.0-36.0) g/dL RDW (11.5-14.5) % Plt Count (140-440) K/mcL MPV (8.8-12.5) fL Immature Gran % (Auto) (0.0-0.5) % Neut % (Auto) (38.0-78.0) % Lymph % (Auto) (15.5-49.0) % [place] % (Auto) (1.0-12.0) % Eos % (Auto) (0.0-7.0) % Baso % (Auto) (0.0-2.0) % Lymph # (Auto) (1.50-4.80) K/mcL [place] # (Auto) (0.10-0.90) K/mcL Eos # (Auto) (0.00-0.70) K/mcL Baso # (Auto) (0.00-0.30) K/mcL Immature Gran # (0.00-0.05) K/mcl Absolute Neutrophils (1.80-8.00) K/mcL POC VBG pH (7.32-7.42) POC VBG pCO2 at Temp (41-51) POC VBG pO2 (25-40) POC VBG HCO3 (24-28) POC VBG Total CO2 (25-29) POC Venous O2 Sat (40-70) POC VBG Base Excess (-2-2) VBG Lactic Acid (0.5-2) POC Sodium (133-145) POC Potassium (3.3-5.1) POC Chloride (96-108) POC Total CO2 (22-30) POC BUN (6-20) POC Creatinine (0.6-1.2) POC Glucose (70-105) POC WB Ioniz Calcium (1.16-1.32) Total Bilirubin 0.3 (0.1-1.0) mg/dL Direct Bilirubin < 0.2 (0-0.3) mg/dL AST 16 (<32) U/L ALT 11 (<40) U/L Alkaline Phosphatase 54 (39-117) U/L Ammonia (11-51) umol/L Troponin T (<0.03) ng/mL Total Protein 5.4 L (5.9-8.4) gm/dL Albumin 3.1 L (3.2-5.2) gm/dL Globulin 2.3 (2.2-3.7) gm/dL Lipase 26 (7-60) U/L TSH 6.31 H (0.27-5.01) uIU/mL Urine Color Yellow Urine Appearance Clear (Clear) Urine pH 6.0 (5.0-9.0) Ur Specific [place] 1.010 (1.000-1.035) Urine Protein Negative (Negative) mg/dL Urine Glucose (UA) Negative (Negative) mg/dL Urine Ketones Negative (Negative) mg/dL Urine Occult Blood Trace-lysed A (Negative) lili/mcL Urine Nitrate Negative (Negative) Urine Bilirubin Negative (Negative) mg/dL Urine Urobilinogen Normal mg/dL Ur Leukocyte Esterase Trace A (Negative) /uL Urine RBC 5 H (0-3) /hpf Urine WBC 12 H (0-4) /hpf Ur Squamous Epith Cells 0 (0-4) /hpf Urine Bacteria None (0) /hpf Urine Mucus Few A (None) /hpf Ur Culture Indicated? yes Urine Opiates Screen None detected Ur Opiates Confirm TNP Ur Oxycodone Screen None detected U Oxycod/Oxymor Confirm TNP Urine Methadone Screen None detected Ur Methadone Confirm TNP Ur Barbiturates Screen Suspect positive A Ur Phencyclidine Scrn None detected Urine PCP Confirm TNP Ur Amphetamines Screen None detected U Amphetamines Confirm TNP U Benzodiazepines Scrn None detected Ur Benzodiazepine, Qnt TNP Urine Cocaine Screen None detected Urine Cocaine Confirm TNP U Cannabinoids Confirm TNP U Marijuana (THC) Screen None detected Ethyl Alcohol mg/dL mg/dL Ethyl Alcohol g/dL (<0.010) gm/dL POC Troponin I (0.00-0.08) 04/03/22 Range/Units 18:09 WBC (4.5-11.0) K/mcL RBC (3.59-5.38) M/mcL Hgb (11.2-15.7) g/dL Hct (34.1-44.9) % POC Hct (36-48) MCV (80.0-100.0) fL MCH (26.0-34.0) pg MCHC (31.0-36.0) g/dL RDW (11.5-14.5) % Plt Count (140-440) K/mcL MPV (8.8-12.5) fL Immature Gran % (Auto) (0.0-0.5) % Neut % (Auto) (38.0-78.0) % Lymph % (Auto) (15.5-49.0) % [place] % (Auto) (1.0-12.0) % Eos % (Auto) (0.0-7.0) % Baso % (Auto) (0.0-2.0) % Lymph # (Auto) (1.50-4.80) K/mcL [place] # (Auto) (0.10-0.90) K/mcL Eos # (Auto) (0.00-0.70) K/mcL Baso # (Auto) (0.00-0.30) K/mcL Immature Gran # (0.00-0.05) K/mcl Absolute Neutrophils (1.80-8.00) K/mcL POC VBG pH (7.32-7.42) POC VBG pCO2 at Temp (41-51) POC VBG pO2 (25-40) POC VBG HCO3 (24-28) POC VBG Total CO2 (25-29) POC Venous O2 Sat (40-70) POC VBG Base Excess (-2-2) VBG Lactic Acid (0.5-2) POC Sodium (133-145) POC Potassium (3.3-5.1) POC Chloride (96-108) POC Total CO2 (22-30) POC BUN (6-20) POC Creatinine (0.6-1.2) POC Glucose (70-105) POC WB Ioniz Calcium (1.16-1.32) Total Bilirubin (0.1-1.0) mg/dL Direct Bilirubin (0-0.3) mg/dL AST (<32) U/L ALT (<40) U/L Alkaline Phosphatase (39-117) U/L Ammonia 14 (11-51) umol/L Troponin T (<0.03) ng/mL Total Protein (5.9-8.4) gm/dL Albumin (3.2-5.2) gm/dL Globulin (2.2-3.7) gm/dL Lipase (7-60) U/L TSH (0.27-5.01) uIU/mL Urine Color Urine Appearance (Clear) Urine pH (5.0-9.0) Ur Specific [place] (1.000-1.035) Urine Protein (Negative) mg/dL Urine Glucose (UA) (Negative) mg/dL Urine Ketones (Negative) mg/dL Urine Occult Blood (Negative) lili/mcL Urine Nitrate (Negative) Urine Bilirubin (Negative) mg/dL Urine Urobilinogen mg/dL Ur Leukocyte Esterase (Negative) /uL Urine RBC (0-3) /hpf Urine WBC (0-4) /hpf Ur Squamous Epith Cells (0-4) /hpf Urine Bacteria (0) /hpf Urine Mucus (None) /hpf Ur Culture Indicated? Urine Opiates Screen Ur Opiates Confirm Ur Oxycodone Screen U Oxycod/Oxymor Confirm Urine Methadone Screen Ur Methadone Confirm Ur Barbiturates Screen Ur Phencyclidine Scrn Urine PCP Confirm Ur Amphetamines Screen U Amphetamines Confirm U Benzodiazepines Scrn Ur Benzodiazepine, Qnt Urine Cocaine Screen Urine Cocaine Confirm U Cannabinoids Confirm U Marijuana (THC) Screen Ethyl Alcohol mg/dL mg/dL Ethyl Alcohol g/dL (<0.010) gm/dL POC Troponin I (0.00-0.08) ED POC Tests ED POC Tests: CHRISTOPHER - SARS Antigen Negative Discharge Plan Patient/Caregiver Discharge Instructions Pt seen by RECORDING CLERK/PA only: No Clinical Impression: Catatonia Patient Disposition: Still a Patient Follow up with: Chandan Sharpe MD [Primary Care Provider] - Prescriptions: No Action hydrocodone-acetaminophen 7.5-325 mg tablet 1 tab PO Q4H Qty: 150 0RF Rx Instructions: Max 5 a day tramadol 50 mg tablet 50 mg PO QID PRN (Reason: pain) Qty: 240 0RF duloxetine [Cymbalta] 30 mg capsule,delayed release(DR/EC) 60 mg PO QDAY Rx Instructions: 30 mg (3 caps) PO daily; baclofen 10 mg tablet 10 mg PO Q8H PRN (Reason: Pain) primidone 50 mg Tablet 50 mg PO TID levothyroxine 137 mcg Tablet 137 mcg PO QDAY trazodone 50 mg Tablet 50 mg PO QHS nitrofurantoin 100 mg Capsule 100 mg PO BID Rx Instructions: must administer with a meal/food pantoprazole 40 mg Tablet,Delayed Release (Dr/Ec) 40 mg PO QDAY pantoprazole 40 mg Tablet,Delayed Release (Dr/Ec) 40 mg PO QDAY hydroxyzine HCl 25 mg Tablet 25 mg PO TID PRN (Reason: Anxiety) hydroxyzine HCl 25 mg Tablet 25 mg PO TID PRN (Reason: Anxiety) allopurinol 300 mg Tablet 300 mg PO QDAY albuterol 90 mcg/actuation Aerosol 90 mcg INHALATION QID olmesartan 20 mg Tablet 20 mg PO QDAY
[2022-04-04] MEDS ORDERED: hydrALAZINE 20 MG/ML VIAL IV ONE (04:12)
[2022-04-04] MEDS ORDERED: LORazepam 2 MG/ML VIAL IV ONE (04:14)
[2022-04-04] MEDS: 0.9 % SODIUM CHLORIDE 1,000 ML IV SCH ×2 (08:30→16:38)
--- NOTE | 2022-04-04 08:46 | EKG ---
[facility] Test Date: 2022-04-03 Pat Name: Venice Oliveira Department: ED Room: Gender: Female Customer Contact Sales Associate: : [id number] Requested By: Amish Harding Order Number: [id number] Reading MD: Blayne Martin M.D. Measurements Intervals [place] Rate: 54 P: 20 NH: 134 QRS: -48 QRSD: 95 T: -3 QT: 427 QTc: 405 Interpretive Statements Sinus rhythm Left anterior fascicular block Nonspecific T abnormalities, anterior leads Electronically Signed On 04-04-2022 8:46:28 PST by Blayne Martin M.D. /store/[email or web address]/[id number]
--- NOTE | 2022-04-04 17:53 | Emergency Department Note ---
HPI General Chief complaint: Psychiatric Symptoms Stated complaint: unresponsive Time Seen by Provider: 04/03/22 17:06 Source: EMS Mode of arrival: EMS History of Present Illness HPI Narrative: Narrative: Patient received on signout. She rested comfortably throughout my shift. Related Data Home Medications Medication Instructions Recorded Confirmed baclofen 10 mg tablet 10 mg PO Q8H PRN Pain 02/27/19 04/03/22 duloxetine 30 mg capsule,delayed 60 mg PO QDAY 02/27/19 04/03/22 release (Cymbalta) albuterol 90 mcg/actuation aerosol 90 mcg inhalation QID 04/03/22 04/03/22 inhaler allopurinol 300 mg tablet 300 mg PO QDAY 04/03/22 04/03/22 hydroxyzine HCl 25 mg tablet 25 mg PO TID PRN Anxiety 04/03/22 04/03/22 hydroxyzine HCl 25 mg tablet 25 mg PO TID PRN Anxiety 04/03/22 04/03/22 levothyroxine 137 mcg tablet 137 mcg PO QDAY 04/03/22 04/03/22 nitrofurantoin 100 mg capsule 100 mg PO BID 04/03/22 04/03/22 olmesartan 20 mg tablet 20 mg PO QDAY 04/03/22 04/03/22 pantoprazole 40 mg tablet,delayed 40 mg PO QDAY 04/03/22 04/03/22 release pantoprazole 40 mg tablet,delayed 40 mg PO QDAY 04/03/22 04/03/22 release primidone 50 mg tablet 50 mg PO TID 04/03/22 04/03/22 trazodone 50 mg tablet 50 mg PO QHS 04/03/22 04/03/22 Previous Rx's Medication Instructions Recorded hydrocodone 7.5 mg-acetaminophen 1 tab PO Q4H #150 tabs 03/12/19 325 mg tablet tramadol 50 mg tablet 50 mg PO QID PRN pain #240 tabs 03/12/19 Allergies Allergy/AdvReac Type Severity Reaction Status Date / Time Opioids - Morphine Analogues Allergy Severe Unknown Verified 03/21/22 17:40 latex Allergy Rash Verified 03/21/22 17:40 hydromorphone [From Dilaudid] AdvReac Unknown Other Verified 03/21/22 17:40 Codeine Sulfate Allergy Severe unknown Uncoded 06/16/21 16:35 Lyrica (Pregabalin Caps) Allergy Severe Dizziness, Uncoded 06/16/21 16:35 confusion band-aids AdvReac Rash Uncoded 06/16/21 16:35 Review of Systems ROS ROS Narrative: Narrative: [facility] Narrative Patient History Narrative: Narrative: Medical/Surgical/Family History All Active Problems (Updated 04/04/22 @ 07:38 by Amish Chris MD) Nausea & vomiting (Acute) Fatigue (Acute) Dyspnea (Acute) Pain in toe (Acute) Adult failure to thrive (Acute) Catatonia (Acute) Viral syndrome (Acute) Chest pain (Acute) Acute pelvic pain (Acute) Excessive cerumen in both ear canals (Acute) Sinusitis, acute (Acute) Muscle spasm (Acute) Cellulitis of left foot (Acute) Left foot pain (Acute) Rib pain on right side (Acute) Hay fever (Chronic) Anxiety and depression (Chronic) Poor sleep (Chronic) Irritable bowel syndrome (Chronic) Benign hypertension (Chronic) GERD (gastroesophageal reflux disease) (Chronic) Vitamin D deficiency (Chronic) Chronic fatigue syndrome (Chronic) Abnormal weight loss (Chronic) Claudication of both lower extremities (Chronic) Osteoporosis of lumbar spine (Chronic) Dyspareunia (Chronic) Stomatitis (Chronic) Hyperglycemia (Chronic) Right knee pain (Chronic) Migraine (Chronic) Hypoglycemia (Chronic) Anemia (Chronic) Unspecified injury of thorax, initial encounter (Chronic) Bilateral ankle pain (Chronic) Double vision (Chronic) Right carpal tunnel syndrome (Chronic) Fibromyalgia (Chronic) Left eye pain (Chronic) Persistent headaches (Chronic) Acute low back pain (Chronic) Fatigue (Chronic) High risk medication use (Chronic) Chronic pain syndrome (Chronic) Anxiety reaction (Chronic) Pain in joint of right wrist (Chronic) Insomnia (Chronic) Restless leg syndrome (Chronic) Palpitations (Chronic) Prediabetes (Chronic) Hyperlipidemia (Chronic) Eczema (Chronic) B12 deficiency (Chronic) Hx of sleep apnea (Chronic) Memory deficit (Chronic) Dry eye syndrome, bilateral (Chronic) Medical History Abnormal weight loss Acute low back pain Anemia Anxiety and depression Anxiety reaction Arm fracture, left B12 deficiency Benign hypertension Bilateral ankle pain Chest pain Chronic fatigue syndrome Chronic pain syndrome Claudication of both lower extremities Double vision Dry eye syndrome, bilateral Dyspareunia Eczema Excessive cerumen in both ear canals Fatigue Fibromyalgia GERD (gastroesophageal reflux disease) Hay fever High risk medication use History of left heart catheterization (09/24/18) [place], [facility] Hx of sleep apnea Hyperglycemia Hyperlipidemia Hypoglycemia Insomnia Irritable bowel syndrome Left eye pain Lower abdominal pain Memory deficit Migraine Nausea alone Osteoporosis of lumbar spine Pain in joint of right wrist Pain in right ankle and joints of right foot Palpitations Persistent headaches Poor sleep Prediabetes Restless leg syndrome Right carpal tunnel syndrome Right knee pain Sinusitis, acute Stomatitis Unspecified injury of thorax, initial encounter Viral syndrome Vitamin D deficiency Surgical History History of bladder surgery History of carpal tunnel surgery of left wrist (~2011) History of carpal tunnel surgery of right wrist (~2011) History of gastric bypass (~2007) History of hysterectomy (~1993) Family History Mother , age 74 Osteoporosis Myocardial infarction Father , age 73 High blood pressure Kidney disease Heart disease Grandmother Glaucoma maternal Heart disease maternal High blood pressure maternal Diabetes maternal Social History Smoking Status: Former smoker Alcohol Intake Frequency: does not drink Substance Use: does not use Exam Narrative Narrative: Narrative: Course Vital Signs Vital signs: Vital Signs Temperature 99.1 F H 04/03/22 16:53 Pulse Rate 70 04/03/22 16:53 Respiratory Rate 14 04/03/22 16:53 Blood Pressure 198/80 04/03/22 16:53 Pulse Oximetry (%) 98 04/03/22 16:53 Oxygen Delivery Method 04/03/22 16:53 Temperature 99.1 F H 04/03/22 16:53 Pulse Rate 84 04/04/22 17:46 Respiratory Rate 16 04/04/22 13:54 Blood Pressure 143/99 04/04/22 17:00 Pulse Oximetry (%) 94 04/04/22 17:46 Oxygen Delivery Method 04/03/22 16:53 MDM MDM Narrative Medical decision making narrative: Narrative: Lab Data Result diagrams: 04/03/22 17:27 Labs: Lab Results 04/03/22 04/03/22 04/03/22 Range/Units 17:07 17:08 17:25 WBC (4.5-11.0) K/mcL RBC (3.59-5.38) M/mcL Hgb (11.2-15.7) g/dL Hct (34.1-44.9) % POC Hct 35.0 L (36-48) MCV (80.0-100.0) fL MCH (26.0-34.0) pg MCHC (31.0-36.0) g/dL RDW (11.5-14.5) % Plt Count (140-440) K/mcL MPV (8.8-12.5) fL Immature Gran % (Auto) (0.0-0.5) % Neut % (Auto) (38.0-78.0) % Lymph % (Auto) (15.5-49.0) % [place] % (Auto) (1.0-12.0) % Eos % (Auto) (0.0-7.0) % Baso % (Auto) (0.0-2.0) % Lymph # (Auto) (1.50-4.80) K/mcL [place] # (Auto) (0.10-0.90) K/mcL Eos # (Auto) (0.00-0.70) K/mcL Baso # (Auto) (0.00-0.30) K/mcL Immature Gran # (0.00-0.05) K/mcl Absolute Neutrophils (1.80-8.00) K/mcL POC VBG pH 7.39 (7.32-7.42) POC VBG pCO2 at Temp 48.7 (41-51) POC VBG pO2 25 (25-40) POC VBG HCO3 29.5 H (24-28) POC VBG Total CO2 31.0 H (25-29) POC Venous O2 Sat 43.0 (40-70) POC VBG Base Excess 5.0 H* (-2-2) VBG Lactic Acid 0.7 (0.5-2) POC Sodium 136 (133-145) POC Potassium 3.4 (3.3-5.1) POC Chloride 97 (96-108) POC Total CO2 28.0 (22-30) POC BUN 8 (6-20) POC Creatinine 0.7 (0.6-1.2) POC Glucose 88 (70-105) POC WB Ioniz Calcium 1.23 (1.16-1.32) Total Bilirubin (0.1-1.0) mg/dL Direct Bilirubin (0-0.3) mg/dL AST (<32) U/L ALT (<40) U/L Alkaline Phosphatase (39-117) U/L Ammonia (11-51) umol/L Troponin T (<0.03) ng/mL Total Protein (5.9-8.4) gm/dL Albumin (3.2-5.2) gm/dL Globulin (2.2-3.7) gm/dL Lipase (7-60) U/L TSH (0.27-5.01) uIU/mL Urine Color Urine Appearance (Clear) Urine pH (5.0-9.0) Ur Specific [place] (1.000-1.035) Urine Protein (Negative) mg/dL Urine Glucose (UA) (Negative) mg/dL Urine Ketones (Negative) mg/dL Urine Occult Blood (Negative) lili/mcL Urine Nitrate (Negative) Urine Bilirubin (Negative) mg/dL Urine Urobilinogen mg/dL Ur Leukocyte Esterase (Negative) /uL Urine RBC (0-3) /hpf Urine WBC (0-4) /hpf Ur Squamous Epith Cells (0-4) /hpf Urine Bacteria (0) /hpf Urine Mucus (None) /hpf Ur Culture Indicated? Urine Opiates Screen Ur Opiates Confirm Ur Oxycodone Screen U Oxycod/Oxymor Confirm Urine Methadone Screen Ur Methadone Confirm Ur Barbiturates Screen Ur Phencyclidine Scrn Urine PCP Confirm Ur Amphetamines Screen U Amphetamines Confirm U Benzodiazepines Scrn Ur Benzodiazepine, Qnt Urine Cocaine Screen Urine Cocaine Confirm U Cannabinoids Confirm U Marijuana (THC) Screen Ethyl Alcohol mg/dL mg/dL Ethyl Alcohol g/dL (<0.010) gm/dL POC Troponin I < 0.02 (0.00-0.08) 04/03/22 04/03/22 04/03/22 Range/Units 17:26 17:27 17:27 WBC 6.2 (4.5-11.0) K/mcL RBC 3.52 L (3.59-5.38) M/mcL Hgb 11.3 (11.2-15.7) g/dL Hct 32.7 L (34.1-44.9) % POC Hct (36-48) MCV 92.9 (80.0-100.0) fL MCH 32.1 (26.0-34.0) pg MCHC 34.6 (31.0-36.0) g/dL RDW 15.2 H (11.5-14.5) % Plt Count 198 (140-440) K/mcL MPV 10.3 (8.8-12.5) fL Immature Gran % (Auto) 0.5 (0.0-0.5) % Neut % (Auto) 55.2 (38.0-78.0) % Lymph % (Auto) 34.3 (15.5-49.0) % [place] % (Auto) 8.0 (1.0-12.0) % Eos % (Auto) 1.5 (0.0-7.0) % Baso % (Auto) 0.5 (0.0-2.0) % Lymph # (Auto) 2.11 (1.50-4.80) K/mcL [place] # (Auto) 0.49 (0.10-0.90) K/mcL Eos # (Auto) 0.09 (0.00-0.70) K/mcL Baso # (Auto) 0.03 (0.00-0.30) K/mcL Immature Gran # 0.03 (0.00-0.05) K/mcl Absolute Neutrophils 3.40 (1.80-8.00) K/mcL POC VBG pH (7.32-7.42) POC VBG pCO2 at Temp (41-51) POC VBG pO2 (25-40) POC VBG HCO3 (24-28) POC VBG Total CO2 (25-29) POC Venous O2 Sat (40-70) POC VBG Base Excess (-2-2) VBG Lactic Acid (0.5-2) POC Sodium (133-145) POC Potassium (3.3-5.1) POC Chloride (96-108) POC Total CO2 (22-30) POC BUN (6-20) POC Creatinine (0.6-1.2) POC Glucose (70-105) POC WB Ioniz Calcium (1.16-1.32) Total Bilirubin (0.1-1.0) mg/dL Direct Bilirubin (0-0.3) mg/dL AST (<32) U/L ALT (<40) U/L Alkaline Phosphatase (39-117) U/L Ammonia (11-51) umol/L Troponin T < 0.01 (<0.03) ng/mL Total Protein (5.9-8.4) gm/dL Albumin (3.2-5.2) gm/dL Globulin (2.2-3.7) gm/dL Lipase (7-60) U/L TSH (0.27-5.01) uIU/mL Urine Color Urine Appearance (Clear) Urine pH (5.0-9.0) Ur Specific [place] (1.000-1.035) Urine Protein (Negative) mg/dL Urine Glucose (UA) (Negative) mg/dL Urine Ketones (Negative) mg/dL Urine Occult Blood (Negative) lili/mcL Urine Nitrate (Negative) Urine Bilirubin (Negative) mg/dL Urine Urobilinogen mg/dL Ur Leukocyte Esterase (Negative) /uL Urine RBC (0-3) /hpf Urine WBC (0-4) /hpf Ur Squamous Epith Cells (0-4) /hpf Urine Bacteria (0) /hpf Urine Mucus (None) /hpf Ur Culture Indicated? Urine Opiates Screen Ur Opiates Confirm Ur Oxycodone Screen U Oxycod/Oxymor Confirm Urine Methadone Screen Ur Methadone Confirm Ur Barbiturates Screen Ur Phencyclidine Scrn Urine PCP Confirm Ur Amphetamines Screen U Amphetamines Confirm U Benzodiazepines Scrn Ur Benzodiazepine, Qnt Urine Cocaine Screen Urine Cocaine Confirm U Cannabinoids Confirm U Marijuana (THC) Screen Ethyl Alcohol mg/dL < 10.0 mg/dL Ethyl Alcohol g/dL < 0.010 (<0.010) gm/dL POC Troponin I (0.00-0.08) 04/03/22 04/03/22 04/03/22 Range/Units 17:27 17:32 17:39 WBC (4.5-11.0) K/mcL RBC (3.59-5.38) M/mcL Hgb (11.2-15.7) g/dL Hct (34.1-44.9) % POC Hct (36-48) MCV (80.0-100.0) fL MCH (26.0-34.0) pg MCHC (31.0-36.0) g/dL RDW (11.5-14.5) % Plt Count (140-440) K/mcL MPV (8.8-12.5) fL Immature Gran % (Auto) (0.0-0.5) % Neut % (Auto) (38.0-78.0) % Lymph % (Auto) (15.5-49.0) % [place] % (Auto) (1.0-12.0) % Eos % (Auto) (0.0-7.0) % Baso % (Auto) (0.0-2.0) % Lymph # (Auto) (1.50-4.80) K/mcL [place] # (Auto) (0.10-0.90) K/mcL Eos # (Auto) (0.00-0.70) K/mcL Baso # (Auto) (0.00-0.30) K/mcL Immature Gran # (0.00-0.05) K/mcl Absolute Neutrophils (1.80-8.00) K/mcL POC VBG pH (7.32-7.42) POC VBG pCO2 at Temp (41-51) POC VBG pO2 (25-40) POC VBG HCO3 (24-28) POC VBG Total CO2 (25-29) POC Venous O2 Sat (40-70) POC VBG Base Excess (-2-2) VBG Lactic Acid (0.5-2) POC Sodium (133-145) POC Potassium (3.3-5.1) POC Chloride (96-108) POC Total CO2 (22-30) POC BUN (6-20) POC Creatinine (0.6-1.2) POC Glucose (70-105) POC WB Ioniz Calcium (1.16-1.32) Total Bilirubin 0.3 (0.1-1.0) mg/dL Direct Bilirubin < 0.2 (0-0.3) mg/dL AST 16 (<32) U/L ALT 11 (<40) U/L Alkaline Phosphatase 54 (39-117) U/L Ammonia (11-51) umol/L Troponin T (<0.03) ng/mL Total Protein 5.4 L (5.9-8.4) gm/dL Albumin 3.1 L (3.2-5.2) gm/dL Globulin 2.3 (2.2-3.7) gm/dL Lipase 26 (7-60) U/L TSH 6.31 H (0.27-5.01) uIU/mL Urine Color Yellow Urine Appearance Clear (Clear) Urine pH 6.0 (5.0-9.0) Ur Specific [place] 1.010 (1.000-1.035) Urine Protein Negative (Negative) mg/dL Urine Glucose (UA) Negative (Negative) mg/dL Urine Ketones Negative (Negative) mg/dL Urine Occult Blood Trace-lysed A (Negative) lili/mcL Urine Nitrate Negative (Negative) Urine Bilirubin Negative (Negative) mg/dL Urine Urobilinogen Normal mg/dL Ur Leukocyte Esterase Trace A (Negative) /uL Urine RBC 5 H (0-3) /hpf Urine WBC 12 H (0-4) /hpf Ur Squamous Epith Cells 0 (0-4) /hpf Urine Bacteria None (0) /hpf Urine Mucus Few A (None) /hpf Ur Culture Indicated? yes Urine Opiates Screen None detected Ur Opiates Confirm TNP Ur Oxycodone Screen None detected U Oxycod/Oxymor Confirm TNP Urine Methadone Screen None detected Ur Methadone Confirm TNP Ur Barbiturates Screen Suspect positive A Ur Phencyclidine Scrn None detected Urine PCP Confirm TNP Ur Amphetamines Screen None detected U Amphetamines Confirm TNP U Benzodiazepines Scrn None detected Ur Benzodiazepine, Qnt TNP Urine Cocaine Screen None detected Urine Cocaine Confirm TNP U Cannabinoids Confirm TNP U Marijuana (THC) Screen None detected Ethyl Alcohol mg/dL mg/dL Ethyl Alcohol g/dL (<0.010) gm/dL POC Troponin I (0.00-0.08) 04/03/22 Range/Units 18:09 WBC (4.5-11.0) K/mcL RBC (3.59-5.38) M/mcL Hgb (11.2-15.7) g/dL Hct (34.1-44.9) % POC Hct (36-48) MCV (80.0-100.0) fL MCH (26.0-34.0) pg MCHC (31.0-36.0) g/dL RDW (11.5-14.5) % Plt Count (140-440) K/mcL MPV (8.8-12.5) fL Immature Gran % (Auto) (0.0-0.5) % Neut % (Auto) (38.0-78.0) % Lymph % (Auto) (15.5-49.0) % [place] % (Auto) (1.0-12.0) % Eos % (Auto) (0.0-7.0) % Baso % (Auto) (0.0-2.0) % Lymph # (Auto) (1.50-4.80) K/mcL [place] # (Auto) (0.10-0.90) K/mcL Eos # (Auto) (0.00-0.70) K/mcL Baso # (Auto) (0.00-0.30) K/mcL Immature Gran # (0.00-0.05) K/mcl Absolute Neutrophils (1.80-8.00) K/mcL POC VBG pH (7.32-7.42) POC VBG pCO2 at Temp (41-51) POC VBG pO2 (25-40) POC VBG HCO3 (24-28) POC VBG Total CO2 (25-29) POC Venous O2 Sat (40-70) POC VBG Base Excess (-2-2) VBG Lactic Acid (0.5-2) POC Sodium (133-145) POC Potassium (3.3-5.1) POC Chloride (96-108) POC Total CO2 (22-30) POC BUN (6-20) POC Creatinine (0.6-1.2) POC Glucose (70-105) POC WB Ioniz Calcium (1.16-1.32) Total Bilirubin (0.1-1.0) mg/dL Direct Bilirubin (0-0.3) mg/dL AST (<32) U/L ALT (<40) U/L Alkaline Phosphatase (39-117) U/L Ammonia 14 (11-51) umol/L Troponin T (<0.03) ng/mL Total Protein (5.9-8.4) gm/dL Albumin (3.2-5.2) gm/dL Globulin (2.2-3.7) gm/dL Lipase (7-60) U/L TSH (0.27-5.01) uIU/mL Urine Color Urine Appearance (Clear) Urine pH (5.0-9.0) Ur Specific [place] (1.000-1.035) Urine Protein (Negative) mg/dL Urine Glucose (UA) (Negative) mg/dL Urine Ketones (Negative) mg/dL Urine Occult Blood (Negative) lili/mcL Urine Nitrate (Negative) Urine Bilirubin (Negative) mg/dL Urine Urobilinogen mg/dL Ur Leukocyte Esterase (Negative) /uL Urine RBC (0-3) /hpf Urine WBC (0-4) /hpf Ur Squamous Epith Cells (0-4) /hpf Urine Bacteria (0) /hpf Urine Mucus (None) /hpf Ur Culture Indicated? Urine Opiates Screen Ur Opiates Confirm Ur Oxycodone Screen U Oxycod/Oxymor Confirm Urine Methadone Screen Ur Methadone Confirm Ur Barbiturates Screen Ur Phencyclidine Scrn Urine PCP Confirm Ur Amphetamines Screen U Amphetamines Confirm U Benzodiazepines Scrn Ur Benzodiazepine, Qnt Urine Cocaine Screen Urine Cocaine Confirm U Cannabinoids Confirm U Marijuana (THC) Screen Ethyl Alcohol mg/dL mg/dL Ethyl Alcohol g/dL (<0.010) gm/dL POC Troponin I (0.00-0.08) ED POC Tests ED POC Tests: CHRISTOPHER - SARS Antigen Negative Discharge Plan Patient/Caregiver Discharge Instructions Pt seen by JET OPERATOR/PA only: No Clinical Impression: Catatonia Patient Disposition: Still a Patient Condition: Critical Follow up with: Chandan Sharpe MD [Primary Care Provider] - Prescriptions: No Action hydrocodone-acetaminophen 7.5-325 mg tablet 1 tab PO Q4H Qty: 150 0RF Rx Instructions: Max 5 a day tramadol 50 mg tablet 50 mg PO QID PRN (Reason: pain) Qty: 240 0RF duloxetine [Cymbalta] 30 mg capsule,delayed release(DR/EC) 60 mg PO QDAY Rx Instructions: 30 mg (3 caps) PO daily; baclofen 10 mg tablet 10 mg PO Q8H PRN (Reason: Pain) primidone 50 mg Tablet 50 mg PO TID levothyroxine 137 mcg Tablet 137 mcg PO QDAY trazodone 50 mg Tablet 50 mg PO QHS nitrofurantoin 100 mg Capsule 100 mg PO BID Rx Instructions: must administer with a meal/food pantoprazole 40 mg Tablet,Delayed Release (Dr/Ec) 40 mg PO QDAY pantoprazole 40 mg Tablet,Delayed Release (Dr/Ec) 40 mg PO QDAY hydroxyzine HCl 25 mg Tablet 25 mg PO TID PRN (Reason: Anxiety) hydroxyzine HCl 25 mg Tablet 25 mg PO TID PRN (Reason: Anxiety) allopurinol 300 mg Tablet 300 mg PO QDAY albuterol 90 mcg/actuation Aerosol 90 mcg INHALATION QID olmesartan 20 mg Tablet 20 mg PO QDAY
[2022-04-04] MEDS ORDERED: traMADol 50 MG TABLET PO ONE (20:57)
[2022-04-05] MEDS: 0.9 % SODIUM CHLORIDE 1,000 ML IV SCH ×2 (00:12→07:41)
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
[2022-04-05] MEDS ORDERED: BACLOFEN 10 MG TABLET PO PRN (16:58)
[2022-04-05] MEDS ORDERED: traMADol 50 MG TABLET PO PRN (16:59)
[2022-04-05] MEDS ORDERED: hydrOXYzine 25 MG TABLET PO PRN (16:59)
--- NOTE | 2022-04-05 17:09 | Emergency Department Note ---
HPI General Chief complaint: Psychiatric Symptoms Stated complaint: unresponsive Time Seen by Provider: 04/03/22 17:06 Source: EMS Mode of arrival: EMS History of Present Illness HPI Narrative: Narrative: Patient received on signout. The patient rested comfortably throughout my shift. Her regular home medications were ordered. Related Data Home Medications Medication Instructions Recorded Confirmed baclofen 10 mg tablet 10 mg PO Q8H PRN Pain 02/27/19 04/03/22 duloxetine 30 mg capsule,delayed 60 mg PO QDAY 02/27/19 04/03/22 release (Cymbalta) allopurinol 300 mg tablet 300 mg PO QDAY 04/03/22 04/03/22 hydroxyzine HCl 25 mg tablet 25 mg PO TID PRN Anxiety 04/03/22 04/03/22 levothyroxine 137 mcg tablet 137 mcg PO QDAY 04/03/22 04/03/22 nitrofurantoin 100 mg capsule 100 mg PO BID 04/03/22 04/03/22 primidone 50 mg tablet 50 mg PO TID 04/03/22 04/03/22 trazodone 50 mg tablet 50 mg PO QHS 04/03/22 04/03/22 calcium carbonate 200 mg calcium 200 mg PO QHS 04/04/22 04/04/22 (500 mg) chewable tablet (Tums) omeprazole 20 mg capsule,delayed 20 mg PO QDAY 04/05/22 04/05/22 release pantoprazole 40 mg tablet,delayed 40 mg PO QDAY 04/05/22 04/05/22 release Previous Rx's Medication Instructions Recorded tramadol 50 mg tablet 50 mg PO QID PRN pain #240 tabs 03/12/19 Allergies Allergy/AdvReac Type Severity Reaction Status Date / Time Opioids - Morphine Analogues Allergy Severe Unknown Verified 03/21/22 17:40 latex Allergy Rash Verified 03/21/22 17:40 hydromorphone [From Dilaudid] AdvReac Unknown Other Verified 03/21/22 17:40 Codeine Sulfate Allergy Severe unknown Uncoded 06/16/21 16:35 Lyrica (Pregabalin Caps) Allergy Severe Dizziness, Uncoded 06/16/21 16:35 confusion band-aids AdvReac Rash Uncoded 06/16/21 16:35 Review of Systems ROS ROS Narrative: Narrative: PFSH Narrative Patient History Narrative: Narrative: Medical/Surgical/Family History All Active Problems (Updated 04/04/22 @ 07:38 by Amish Chris MD) Nausea & vomiting (Acute) Fatigue (Acute) Dyspnea (Acute) Pain in toe (Acute) Adult failure to thrive (Acute) Catatonia (Acute) Viral syndrome (Acute) Chest pain (Acute) Acute pelvic pain (Acute) Excessive cerumen in both ear canals (Acute) Sinusitis, acute (Acute) Muscle spasm (Acute) Cellulitis of left foot (Acute) Left foot pain (Acute) Rib pain on right side (Acute) Hay fever (Chronic) Anxiety and depression (Chronic) Poor sleep (Chronic) Irritable bowel syndrome (Chronic) Benign hypertension (Chronic) GERD (gastroesophageal reflux disease) (Chronic) Vitamin D deficiency (Chronic) Chronic fatigue syndrome (Chronic) Abnormal weight loss (Chronic) Claudication of both lower extremities (Chronic) Osteoporosis of lumbar spine (Chronic) Dyspareunia (Chronic) Stomatitis (Chronic) Hyperglycemia (Chronic) Right knee pain (Chronic) Migraine (Chronic) Hypoglycemia (Chronic) Anemia (Chronic) Unspecified injury of thorax, initial encounter (Chronic) Bilateral ankle pain (Chronic) Double vision (Chronic) Right carpal tunnel syndrome (Chronic) Fibromyalgia (Chronic) Left eye pain (Chronic) Persistent headaches (Chronic) Acute low back pain (Chronic) Fatigue (Chronic) High risk medication use (Chronic) Chronic pain syndrome (Chronic) Anxiety reaction (Chronic) Pain in joint of right wrist (Chronic) Insomnia (Chronic) Restless leg syndrome (Chronic) Palpitations (Chronic) Prediabetes (Chronic) Hyperlipidemia (Chronic) Eczema (Chronic) B12 deficiency (Chronic) Hx of sleep apnea (Chronic) Memory deficit (Chronic) Dry eye syndrome, bilateral (Chronic) Medical History Abnormal weight loss Acute low back pain Anemia Anxiety and depression Anxiety reaction Arm fracture, left B12 deficiency Benign hypertension Bilateral ankle pain Chest pain Chronic fatigue syndrome Chronic pain syndrome Claudication of both lower extremities Double vision Dry eye syndrome, bilateral Dyspareunia Eczema Excessive cerumen in both ear canals Fatigue Fibromyalgia GERD (gastroesophageal reflux disease) Hay fever High risk medication use History of left heart catheterization (09/24/18) [place] [facility] [place] Hx of sleep apnea Hyperglycemia Hyperlipidemia Hypoglycemia Insomnia Irritable bowel syndrome Left eye pain Lower abdominal pain Memory deficit Migraine Nausea alone Osteoporosis of lumbar spine Pain in joint of right wrist Pain in right ankle and joints of right foot Palpitations Persistent headaches Poor sleep Prediabetes Restless leg syndrome Right carpal tunnel syndrome Right knee pain Sinusitis, acute Stomatitis Unspecified injury of thorax, initial encounter Viral syndrome Vitamin D deficiency Surgical History History of bladder surgery History of carpal tunnel surgery of left wrist (~2011) History of carpal tunnel surgery of right wrist (~2011) History of gastric bypass (~2007) History of hysterectomy (~1993) Family History Mother , age 74 Osteoporosis Myocardial infarction Father , age 73 High blood pressure Kidney disease Heart disease Grandmother Glaucoma maternal Heart disease maternal High blood pressure maternal Diabetes maternal Social History Smoking Status: Former smoker Alcohol Intake Frequency: does not drink Substance Use: does not use Exam Narrative Narrative: Narrative: Course Vital Signs Vital signs: Vital Signs Temperature 99.1 F H 04/03/22 16:53 Pulse Rate 70 04/03/22 16:53 Respiratory Rate 14 04/03/22 16:53 Blood Pressure 198/80 04/03/22 16:53 Pulse Oximetry (%) 98 04/03/22 16:53 Oxygen Delivery Method 04/03/22 16:53 Temperature 99.1 F H 04/03/22 16:53 Pulse Rate 75 04/05/22 13:30 Respiratory Rate 16 04/04/22 20:29 Blood Pressure 170/94 04/05/22 06:38 Pulse Oximetry (%) 99 04/05/22 13:30 Oxygen Delivery Method 04/04/22 20:29 MDM MDM Narrative Medical decision making narrative: Narrative: Lab Data Result diagrams: 04/03/22 17:27 Labs: Lab Results 04/03/22 04/03/22 04/03/22 Range/Units 17:07 17:08 17:25 WBC (4.5-11.0) K/mcL RBC (3.59-5.38) M/mcL Hgb (11.2-15.7) g/dL Hct (34.1-44.9) % POC Hct 35.0 L (36-48) MCV (80.0-100.0) fL MCH (26.0-34.0) pg MCHC (31.0-36.0) g/dL RDW (11.5-14.5) % Plt Count (140-440) K/mcL MPV (8.8-12.5) fL Immature Gran % (Auto) (0.0-0.5) % Neut % (Auto) (38.0-78.0) % Lymph % (Auto) (15.5-49.0) % Hamilton % (Auto) (1.0-12.0) % Eos % (Auto) (0.0-7.0) % Baso % (Auto) (0.0-2.0) % Lymph # (Auto) (1.50-4.80) K/mcL Hamilton # (Auto) (0.10-0.90) K/mcL Eos # (Auto) (0.00-0.70) K/mcL Baso # (Auto) (0.00-0.30) K/mcL Immature Gran # (0.00-0.05) K/mcl Absolute Neutrophils (1.80-8.00) K/mcL POC VBG pH 7.39 (7.32-7.42) POC VBG pCO2 at Temp 48.7 (41-51) POC VBG pO2 25 (25-40) POC VBG HCO3 29.5 H (24-28) POC VBG Total CO2 31.0 H (25-29) POC Venous O2 Sat 43.0 (40-70) POC VBG Base Excess 5.0 H* (-2-2) VBG Lactic Acid 0.7 (0.5-2) POC Sodium 136 (133-145) POC Potassium 3.4 (3.3-5.1) POC Chloride 97 (96-108) POC Total CO2 28.0 (22-30) POC BUN 8 (6-20) POC Creatinine 0.7 (0.6-1.2) POC Glucose 88 (70-105) POC WB Ioniz Calcium 1.23 (1.16-1.32) Total Bilirubin (0.1-1.0) mg/dL Direct Bilirubin (0-0.3) mg/dL AST (<32) U/L ALT (<40) U/L Alkaline Phosphatase (39-117) U/L Ammonia (11-51) umol/L Troponin T (<0.03) ng/mL Total Protein (5.9-8.4) gm/dL Albumin (3.2-5.2) gm/dL Globulin (2.2-3.7) gm/dL Lipase (7-60) U/L TSH (0.27-5.01) uIU/mL Urine Color Urine Appearance (Clear) Urine pH (5.0-9.0) Ur Specific Newton (1.000-1.035) Urine Protein (Negative) mg/dL Urine Glucose (UA) (Negative) mg/dL Urine Ketones (Negative) mg/dL Urine Occult Blood (Negative) lili/mcL Urine Nitrate (Negative) Urine Bilirubin (Negative) mg/dL Urine Urobilinogen mg/dL Ur Leukocyte Esterase (Negative) /uL Urine RBC (0-3) /hpf Urine WBC (0-4) /hpf Ur Squamous Epith Cells (0-4) /hpf Urine Bacteria (0) /hpf Urine Mucus (None) /hpf Ur Culture Indicated? Urine Opiates Screen Ur Opiates Confirm Ur Oxycodone Screen U Oxycod/Oxymor Confirm Urine Methadone Screen Ur Methadone Confirm Ur Barbiturates Screen Ur Phencyclidine Scrn Urine PCP Confirm Ur Amphetamines Screen U Amphetamines Confirm U Benzodiazepines Scrn Ur Benzodiazepine, Qnt Urine Cocaine Screen Urine Cocaine Confirm U Cannabinoids Confirm U Marijuana (THC) Screen Ethyl Alcohol mg/dL mg/dL Ethyl Alcohol g/dL (<0.010) gm/dL POC Troponin I < 0.02 (0.00-0.08) 04/03/22 04/03/22 04/03/22 Range/Units 17:26 17:27 17:27 WBC 6.2 (4.5-11.0) K/mcL RBC 3.52 L (3.59-5.38) M/mcL Hgb 11.3 (11.2-15.7) g/dL Hct 32.7 L (34.1-44.9) % POC Hct (36-48) MCV 92.9 (80.0-100.0) fL MCH 32.1 (26.0-34.0) pg MCHC 34.6 (31.0-36.0) g/dL RDW 15.2 H (11.5-14.5) % Plt Count 198 (140-440) K/mcL MPV 10.3 (8.8-12.5) fL Immature Gran % (Auto) 0.5 (0.0-0.5) % Neut % (Auto) 55.2 (38.0-78.0) % Lymph % (Auto) 34.3 (15.5-49.0) % Hamilton % (Auto) 8.0 (1.0-12.0) % Eos % (Auto) 1.5 (0.0-7.0) % Baso % (Auto) 0.5 (0.0-2.0) % Lymph # (Auto) 2.11 (1.50-4.80) K/mcL Hamilton # (Auto) 0.49 (0.10-0.90) K/mcL Eos # (Auto) 0.09 (0.00-0.70) K/mcL Baso # (Auto) 0.03 (0.00-0.30) K/mcL Immature Gran # 0.03 (0.00-0.05) K/mcl Absolute Neutrophils 3.40 (1.80-8.00) K/mcL POC VBG pH (7.32-7.42) POC VBG pCO2 at Temp (41-51) POC VBG pO2 (25-40) POC VBG HCO3 (24-28) POC VBG Total CO2 (25-29) POC Venous O2 Sat (40-70) POC VBG Base Excess (-2-2) VBG Lactic Acid (0.5-2) POC Sodium (133-145) POC Potassium (3.3-5.1) POC Chloride (96-108) POC Total CO2 (22-30) POC BUN (6-20) POC Creatinine (0.6-1.2) POC Glucose (70-105) POC WB Ioniz Calcium (1.16-1.32) Total Bilirubin (0.1-1.0) mg/dL Direct Bilirubin (0-0.3) mg/dL AST (<32) U/L ALT (<40) U/L Alkaline Phosphatase (39-117) U/L Ammonia (11-51) umol/L Troponin T < 0.01 (<0.03) ng/mL Total Protein (5.9-8.4) gm/dL Albumin (3.2-5.2) gm/dL Globulin (2.2-3.7) gm/dL Lipase (7-60) U/L TSH (0.27-5.01) uIU/mL Urine Color Urine Appearance (Clear) Urine pH (5.0-9.0) Ur Specific Newton (1.000-1.035) Urine Protein (Negative) mg/dL Urine Glucose (UA) (Negative) mg/dL Urine Ketones (Negative) mg/dL Urine Occult Blood (Negative) lili/mcL Urine Nitrate (Negative) Urine Bilirubin (Negative) mg/dL Urine Urobilinogen mg/dL Ur Leukocyte Esterase (Negative) /uL Urine RBC (0-3) /hpf Urine WBC (0-4) /hpf Ur Squamous Epith Cells (0-4) /hpf Urine Bacteria (0) /hpf Urine Mucus (None) /hpf Ur Culture Indicated? Urine Opiates Screen Ur Opiates Confirm Ur Oxycodone Screen U Oxycod/Oxymor Confirm Urine Methadone Screen Ur Methadone Confirm Ur Barbiturates Screen Ur Phencyclidine Scrn Urine PCP Confirm Ur Amphetamines Screen U Amphetamines Confirm U Benzodiazepines Scrn Ur Benzodiazepine, Qnt Urine Cocaine Screen Urine Cocaine Confirm U Cannabinoids Confirm U Marijuana (THC) Screen Ethyl Alcohol mg/dL < 10.0 mg/dL Ethyl Alcohol g/dL < 0.010 (<0.010) gm/dL POC Troponin I (0.00-0.08) 04/03/22 04/03/22 04/03/22 Range/Units 17:27 17:32 17:39 WBC (4.5-11.0) K/mcL RBC (3.59-5.38) M/mcL Hgb (11.2-15.7) g/dL Hct (34.1-44.9) % POC Hct (36-48) MCV (80.0-100.0) fL MCH (26.0-34.0) pg MCHC (31.0-36.0) g/dL RDW (11.5-14.5) % Plt Count (140-440) K/mcL MPV (8.8-12.5) fL Immature Gran % (Auto) (0.0-0.5) % Neut % (Auto) (38.0-78.0) % Lymph % (Auto) (15.5-49.0) % Hamilton % (Auto) (1.0-12.0) % Eos % (Auto) (0.0-7.0) % Baso % (Auto) (0.0-2.0) % Lymph # (Auto) (1.50-4.80) K/mcL Hamilton # (Auto) (0.10-0.90) K/mcL Eos # (Auto) (0.00-0.70) K/mcL Baso # (Auto) (0.00-0.30) K/mcL Immature Gran # (0.00-0.05) K/mcl Absolute Neutrophils (1.80-8.00) K/mcL POC VBG pH (7.32-7.42) POC VBG pCO2 at Temp (41-51) POC VBG pO2 (25-40) POC VBG HCO3 (24-28) POC VBG Total CO2 (25-29) POC Venous O2 Sat (40-70) POC VBG Base Excess (-2-2) VBG Lactic Acid (0.5-2) POC Sodium (133-145) POC Potassium (3.3-5.1) POC Chloride (96-108) POC Total CO2 (22-30) POC BUN (6-20) POC Creatinine (0.6-1.2) POC Glucose (70-105) POC WB Ioniz Calcium (1.16-1.32) Total Bilirubin 0.3 (0.1-1.0) mg/dL Direct Bilirubin < 0.2 (0-0.3) mg/dL AST 16 (<32) U/L ALT 11 (<40) U/L Alkaline Phosphatase 54 (39-117) U/L Ammonia (11-51) umol/L Troponin T (<0.03) ng/mL Total Protein 5.4 L (5.9-8.4) gm/dL Albumin 3.1 L (3.2-5.2) gm/dL Globulin 2.3 (2.2-3.7) gm/dL Lipase 26 (7-60) U/L TSH 6.31 H (0.27-5.01) uIU/mL Urine Color Yellow Urine Appearance Clear (Clear) Urine pH 6.0 (5.0-9.0) Ur Specific Newton 1.010 (1.000-1.035) Urine Protein Negative (Negative) mg/dL Urine Glucose (UA) Negative (Negative) mg/dL Urine Ketones Negative (Negative) mg/dL Urine Occult Blood Trace-lysed A (Negative) lili/mcL Urine Nitrate Negative (Negative) Urine Bilirubin Negative (Negative) mg/dL Urine Urobilinogen Normal mg/dL Ur Leukocyte Esterase Trace A (Negative) /uL Urine RBC 5 H (0-3) /hpf Urine WBC 12 H (0-4) /hpf Ur Squamous Epith Cells 0 (0-4) /hpf Urine Bacteria None (0) /hpf Urine Mucus Few A (None) /hpf Ur Culture Indicated? yes Urine Opiates Screen None detected Ur Opiates Confirm TNP Ur Oxycodone Screen None detected U Oxycod/Oxymor Confirm TNP Urine Methadone Screen None detected Ur Methadone Confirm TNP Ur Barbiturates Screen Suspect positive A Ur Phencyclidine Scrn None detected Urine PCP Confirm TNP Ur Amphetamines Screen None detected U Amphetamines Confirm TNP U Benzodiazepines Scrn None detected Ur Benzodiazepine, Qnt TNP Urine Cocaine Screen None detected Urine Cocaine Confirm TNP U Cannabinoids Confirm TNP U Marijuana (THC) Screen None detected Ethyl Alcohol mg/dL mg/dL Ethyl Alcohol g/dL (<0.010) gm/dL POC Troponin I (0.00-0.08) 04/03/22 Range/Units 18:09 WBC (4.5-11.0) K/mcL RBC (3.59-5.38) M/mcL Hgb (11.2-15.7) g/dL Hct (34.1-44.9) % POC Hct (36-48) MCV (80.0-100.0) fL MCH (26.0-34.0) pg MCHC (31.0-36.0) g/dL RDW (11.5-14.5) % Plt Count (140-440) K/mcL MPV (8.8-12.5) fL Immature Gran % (Auto) (0.0-0.5) % Neut % (Auto) (38.0-78.0) % Lymph % (Auto) (15.5-49.0) % Hamilton % (Auto) (1.0-12.0) % Eos % (Auto) (0.0-7.0) % Baso % (Auto) (0.0-2.0) % Lymph # (Auto) (1.50-4.80) K/mcL Hamilton # (Auto) (0.10-0.90) K/mcL Eos # (Auto) (0.00-0.70) K/mcL Baso # (Auto) (0.00-0.30) K/mcL Immature Gran # (0.00-0.05) K/mcl Absolute Neutrophils (1.80-8.00) K/mcL POC VBG pH (7.32-7.42) POC VBG pCO2 at Temp (41-51) POC VBG pO2 (25-40) POC VBG HCO3 (24-28) POC VBG Total CO2 (25-29) POC Venous O2 Sat (40-70) POC VBG Base Excess (-2-2) VBG Lactic Acid (0.5-2) POC Sodium (133-145) POC Potassium (3.3-5.1) POC Chloride (96-108) POC Total CO2 (22-30) POC BUN (6-20) POC Creatinine (0.6-1.2) POC Glucose (70-105) POC WB Ioniz Calcium (1.16-1.32) Total Bilirubin (0.1-1.0) mg/dL Direct Bilirubin (0-0.3) mg/dL AST (<32) U/L ALT (<40) U/L Alkaline Phosphatase (39-117) U/L Ammonia 14 (11-51) umol/L Troponin T (<0.03) ng/mL Total Protein (5.9-8.4) gm/dL Albumin (3.2-5.2) gm/dL Globulin (2.2-3.7) gm/dL Lipase (7-60) U/L TSH (0.27-5.01) uIU/mL Urine Color Urine Appearance (Clear) Urine pH (5.0-9.0) Ur Specific Newton (1.000-1.035) Urine Protein (Negative) mg/dL Urine Glucose (UA) (Negative) mg/dL Urine Ketones (Negative) mg/dL Urine Occult Blood (Negative) lili/mcL Urine Nitrate (Negative) Urine Bilirubin (Negative) mg/dL Urine Urobilinogen mg/dL Ur Leukocyte Esterase (Negative) /uL Urine RBC (0-3) /hpf Urine WBC (0-4) /hpf Ur Squamous Epith Cells (0-4) /hpf Urine Bacteria (0) /hpf Urine Mucus (None) /hpf Ur Culture Indicated? Urine Opiates Screen Ur Opiates Confirm Ur Oxycodone Screen U Oxycod/Oxymor Confirm Urine Methadone Screen Ur Methadone Confirm Ur Barbiturates Screen Ur Phencyclidine Scrn Urine PCP Confirm Ur Amphetamines Screen U Amphetamines Confirm U Benzodiazepines Scrn Ur Benzodiazepine, Qnt Urine Cocaine Screen Urine Cocaine Confirm U Cannabinoids Confirm U Marijuana (THC) Screen Ethyl Alcohol mg/dL mg/dL Ethyl Alcohol g/dL (<0.010) gm/dL POC Troponin I (0.00-0.08) ED POC Tests ED POC Tests: CHRISTOPHER - SARS Antigen Negative Discharge Plan Patient/Caregiver Discharge Instructions Pt seen by [facility]/PA only: No Clinical Impression: Catatonia Patient Disposition: Still a Patient Condition: Critical Follow up with: Chandan Sharpe MD [Primary Care Provider] - Prescriptions: No Action tramadol 50 mg tablet 50 mg PO QID PRN (Reason: pain) Qty: 240 0RF duloxetine [Cymbalta] 30 mg capsule,delayed release(DR/EC) 60 mg PO QDAY Rx Instructions: 30 mg (3 caps) PO daily; baclofen 10 mg tablet 10 mg PO Q8H PRN (Reason: Pain) primidone 50 mg Tablet 50 mg PO TID levothyroxine 137 mcg Tablet 137 mcg PO QDAY trazodone 50 mg Tablet 50 mg PO QHS nitrofurantoin 100 mg Capsule 100 mg PO BID Rx Instructions: must administer with a meal/food hydroxyzine HCl 25 mg Tablet 25 mg PO TID PRN (Reason: Anxiety) allopurinol 300 mg Tablet 300 mg PO QDAY calcium carbonate [Tums] 200 mg calcium (500 mg) Tablet,Chewable 200 mg PO QHS pantoprazole 40 mg Tablet,Delayed Release (Dr/Ec) 40 mg PO QDAY omeprazole 20 mg Capsule,Delayed Release(Dr/Ec) 20 mg PO QDAY
[2022-04-05] MEDS ORDERED: OLMESARTAN MEDOXOMIL 20 MG TABLET PO SCH (21:00)
[2022-04-05] MEDS ORDERED: traZODone HCL 50 MG TABLET PO SCH (21:00)
[2022-04-05] MEDS: PRIMIDONE 50 MG TABLET PO SCH (21:07)
--- NOTE | 2022-04-06 05:31 | Emergency Department Note ---
ED Note Addendum Note Addendum: Patient was signed out to me at change of shift, 1900 by emergency department colleague. Patient is awaiting transfer to an appropriate psychiatric facility. Patient has been here for approximately 50 hours. During my slitting and shipping supervisor the patient rested comfortably. Urine culture was negative. CT scan previously ordered head showed no acute pathology. No acute blood test results required intervention. Patient will be signed over to my colleague at 07 100 as they continue to wait for placement. I did discuss the case with [facility] during the night. She advised me that they were continuing to seek a bed for this patient.
[2022-04-06] MEDS ORDERED: LEVOTHYROXINE SODIUM 112 MCG TABLET PO SCH (07:30)
[2022-04-06] MEDS ORDERED: LEVOTHYROXINE 25 MCG TABLET PO SCH (07:30)
[2022-04-06] MEDS ORDERED: PANTOPRAZOLE 40 MG TABLET PO SCH (07:30)
[2022-04-06] MEDS ORDERED: DULoxetine 30 MG CAPSULE PO SCH (09:00)
[2022-04-06] MEDS ORDERED: ALLOPURINOL 300 MG TABLET PO SCH (09:00)
[2022-04-06] MEDS: PRIMIDONE 50 MG TABLET PO SCH ×3 (11:30→20:25)
--- NOTE | 2022-04-06 16:40 | Emergency Department Note ---
Course Course Course Narrative: I assumed care of patient at 0 700 pending psychiatric placement, Please refer to notes prior to today for care management up to this point. Patient has been turned down by every facility. 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 Patient has been seen at [facility] on 03/29 and 04/01 with similar symptoms. During those visit at [facility] patient did receive a CT of the head. We will request those images to be pushed to our facility. [place]'s of CT images were reviewed by our radiologist, Dr. Martin, who stated that patient had an acute infarct on the images on in the frontal parietal lobe. These findings would account for patient's behavioral changes. Since being here in the ED for over 3 days patient has improved. She has engaged more with staff requesting to take showers and eat meals. She has required less supervision. Due to patient's newly diagnosed stroke believe patient should have a full stroke work-up to include MRI, echocardiogram and evaluation by PT/OT. Case was discussed with hospitalist who has agreed to admit the patient. Consultations Consultation #1: Case discussed with Dr. Palmer, hospitalist, who has agreed to admit the patient for frontoparietal stroke Time: 16:29 Vital Signs Vital signs: Vital Signs Temperature 99.1 F H 04/03/22 16:53 Pulse Rate 70 04/03/22 16:53 Respiratory Rate 14 04/03/22 16:53 Blood Pressure 198/80 04/03/22 16:53 Pulse Oximetry (%) 98 04/03/22 16:53 Oxygen Delivery Method 04/03/22 16:53 Temperature 99.1 F H 04/03/22 16:53 Pulse Rate 100 H 04/06/22 15:15 Respiratory Rate 16 04/04/22 20:29 Blood Pressure 161/98 04/06/22 15:15 Pulse Oximetry (%) 94 04/06/22 15:15 Oxygen Delivery Method 04/06/22 15:15 [facility] MDM Narrative Medical decision making narrative: Narrative: Differential Diagnosis Differential Diagnosis: Stroke Medical Records Medical records reviewed: Yes I reviewed the patient's medical records. Lab Data Lab results reviewed: Yes I reviewed the patient's lab results. Result diagrams: 04/03/22 17:27 Labs: Lab Results 04/03/22 04/03/22 04/03/22 Range/Units 17:07 17:08 17:25 WBC (4.5-11.0) K/mcL RBC (3.59-5.38) M/mcL Hgb (11.2-15.7) g/dL Hct (34.1-44.9) % POC Hct 35.0 L (36-48) MCV (80.0-100.0) fL MCH (26.0-34.0) pg MCHC (31.0-36.0) g/dL RDW (11.5-14.5) % Plt Count (140-440) K/mcL MPV (8.8-12.5) fL Immature Gran % (Auto) (0.0-0.5) % Neut % (Auto) (38.0-78.0) % Lymph % (Auto) (15.5-49.0) % [place] % (Auto) (1.0-12.0) % Eos % (Auto) (0.0-7.0) % Baso % (Auto) (0.0-2.0) % Lymph # (Auto) (1.50-4.80) K/mcL [place] # (Auto) (0.10-0.90) K/mcL Eos # (Auto) (0.00-0.70) K/mcL Baso # (Auto) (0.00-0.30) K/mcL Immature Gran # (0.00-0.05) K/mcl Absolute Neutrophils (1.80-8.00) K/mcL POC VBG pH 7.39 (7.32-7.42) POC VBG pCO2 at Temp 48.7 (41-51) POC VBG pO2 25 (25-40) POC VBG HCO3 29.5 H (24-28) POC VBG Total CO2 31.0 H (25-29) POC Venous O2 Sat 43.0 (40-70) POC VBG Base Excess 5.0 H* (-2-2) VBG Lactic Acid 0.7 (0.5-2) POC Sodium 136 (133-145) POC Potassium 3.4 (3.3-5.1) POC Chloride 97 (96-108) POC Total CO2 28.0 (22-30) POC BUN 8 (6-20) POC Creatinine 0.7 (0.6-1.2) POC Glucose 88 (70-105) POC WB Ioniz Calcium 1.23 (1.16-1.32) Total Bilirubin (0.1-1.0) mg/dL Direct Bilirubin (0-0.3) mg/dL AST (<32) U/L ALT (<40) U/L Alkaline Phosphatase (39-117) U/L Ammonia (11-51) umol/L Troponin T (<0.03) ng/mL Total Protein (5.9-8.4) gm/dL Albumin (3.2-5.2) gm/dL Globulin (2.2-3.7) gm/dL Lipase (7-60) U/L TSH (0.27-5.01) uIU/mL Urine Color Urine Appearance (Clear) Urine pH (5.0-9.0) Ur Specific [place] (1.000-1.035) Urine Protein (Negative) mg/dL Urine Glucose (UA) (Negative) mg/dL Urine Ketones (Negative) mg/dL Urine Occult Blood (Negative) liil/mcL Urine Nitrate (Negative) Urine Bilirubin (Negative) mg/dL Urine Urobilinogen mg/dL Ur Leukocyte Esterase (Negative) /uL Urine RBC (0-3) /hpf Urine WBC (0-4) /hpf Ur Squamous Epith Cells (0-4) /hpf Urine Bacteria (0) /hpf Urine Mucus (None) /hpf Ur Culture Indicated? Urine Opiates Screen Ur Opiates Confirm Ur Oxycodone Screen U Oxycod/Oxymor Confirm Urine Methadone Screen Ur Methadone Confirm Ur Barbiturates Screen Ur Phencyclidine Scrn Urine PCP Confirm Ur Amphetamines Screen U Amphetamines Confirm U Benzodiazepines Scrn Ur Benzodiazepine, Qnt Urine Cocaine Screen Urine Cocaine Confirm U Cannabinoids Confirm U Marijuana (THC) Screen Ethyl Alcohol mg/dL mg/dL Ethyl Alcohol g/dL (<0.010) gm/dL POC Troponin I < 0.02 (0.00-0.08) 04/03/22 04/03/22 04/03/22 Range/Units 17:26 17:27 17:27 WBC 6.2 (4.5-11.0) K/mcL RBC 3.52 L (3.59-5.38) M/mcL Hgb 11.3 (11.2-15.7) g/dL Hct 32.7 L (34.1-44.9) % POC Hct (36-48) MCV 92.9 (80.0-100.0) fL MCH 32.1 (26.0-34.0) pg MCHC 34.6 (31.0-36.0) g/dL RDW 15.2 H (11.5-14.5) % Plt Count 198 (140-440) K/mcL MPV 10.3 (8.8-12.5) fL Immature Gran % (Auto) 0.5 (0.0-0.5) % Neut % (Auto) 55.2 (38.0-78.0) % Lymph % (Auto) 34.3 (15.5-49.0) % [place] % (Auto) 8.0 (1.0-12.0) % Eos % (Auto) 1.5 (0.0-7.0) % Baso % (Auto) 0.5 (0.0-2.0) % Lymph # (Auto) 2.11 (1.50-4.80) K/mcL [place] # (Auto) 0.49 (0.10-0.90) K/mcL Eos # (Auto) 0.09 (0.00-0.70) K/mcL Baso # (Auto) 0.03 (0.00-0.30) K/mcL Immature Gran # 0.03 (0.00-0.05) K/mcl Absolute Neutrophils 3.40 (1.80-8.00) K/mcL POC VBG pH (7.32-7.42) POC VBG pCO2 at Temp (41-51) POC VBG pO2 (25-40) POC VBG HCO3 (24-28) POC VBG Total CO2 (25-29) POC Venous O2 Sat (40-70) POC VBG Base Excess (-2-2) VBG Lactic Acid (0.5-2) POC Sodium (133-145) POC Potassium (3.3-5.1) POC Chloride (96-108) POC Total CO2 (22-30) POC BUN (6-20) POC Creatinine (0.6-1.2) POC Glucose (70-105) POC WB Ioniz Calcium (1.16-1.32) Total Bilirubin (0.1-1.0) mg/dL Direct Bilirubin (0-0.3) mg/dL AST (<32) U/L ALT (<40) U/L Alkaline Phosphatase (39-117) U/L Ammonia (11-51) umol/L Troponin T < 0.01 (<0.03) ng/mL Total Protein (5.9-8.4) gm/dL Albumin (3.2-5.2) gm/dL Globulin (2.2-3.7) gm/dL Lipase (7-60) U/L TSH (0.27-5.01) uIU/mL Urine Color Urine Appearance (Clear) Urine pH (5.0-9.0) Ur Specific [place] (1.000-1.035) Urine Protein (Negative) mg/dL Urine Glucose (UA) (Negative) mg/dL Urine Ketones (Negative) mg/dL Urine Occult Blood (Negative) lili/mcL Urine Nitrate (Negative) Urine Bilirubin (Negative) mg/dL Urine Urobilinogen mg/dL Ur Leukocyte Esterase (Negative) /uL Urine RBC (0-3) /hpf Urine WBC (0-4) /hpf Ur Squamous Epith Cells (0-4) /hpf Urine Bacteria (0) /hpf Urine Mucus (None) /hpf Ur Culture Indicated? Urine Opiates Screen Ur Opiates Confirm Ur Oxycodone Screen U Oxycod/Oxymor Confirm Urine Methadone Screen Ur Methadone Confirm Ur Barbiturates Screen Ur Phencyclidine Scrn Urine PCP Confirm Ur Amphetamines Screen U Amphetamines Confirm U Benzodiazepines Scrn Ur Benzodiazepine, Qnt Urine Cocaine Screen Urine Cocaine Confirm U Cannabinoids Confirm U Marijuana (THC) Screen Ethyl Alcohol mg/dL < 10.0 mg/dL Ethyl Alcohol g/dL < 0.010 (<0.010) gm/dL POC Troponin I (0.00-0.08) 04/03/22 04/03/22 04/03/22 Range/Units 17:27 17:32 17:39 WBC (4.5-11.0) K/mcL RBC (3.59-5.38) M/mcL Hgb (11.2-15.7) g/dL Hct (34.1-44.9) % POC Hct (36-48) MCV (80.0-100.0) fL MCH (26.0-34.0) pg MCHC (31.0-36.0) g/dL RDW (11.5-14.5) % Plt Count (140-440) K/mcL MPV (8.8-12.5) fL Immature Gran % (Auto) (0.0-0.5) % Neut % (Auto) (38.0-78.0) % Lymph % (Auto) (15.5-49.0) % [place] % (Auto) (1.0-12.0) % Eos % (Auto) (0.0-7.0) % Baso % (Auto) (0.0-2.0) % Lymph # (Auto) (1.50-4.80) K/mcL [place] # (Auto) (0.10-0.90) K/mcL Eos # (Auto) (0.00-0.70) K/mcL Baso # (Auto) (0.00-0.30) K/mcL Immature Gran # (0.00-0.05) K/mcl Absolute Neutrophils (1.80-8.00) K/mcL POC VBG pH (7.32-7.42) POC VBG pCO2 at Temp (41-51) POC VBG pO2 (25-40) POC VBG HCO3 (24-28) POC VBG Total CO2 (25-29) POC Venous O2 Sat (40-70) POC VBG Base Excess (-2-2) VBG Lactic Acid (0.5-2) POC Sodium (133-145) POC Potassium (3.3-5.1) POC Chloride (96-108) POC Total CO2 (22-30) POC BUN (6-20) POC Creatinine (0.6-1.2) POC Glucose (70-105) POC WB Ioniz Calcium (1.16-1.32) Total Bilirubin 0.3 (0.1-1.0) mg/dL Direct Bilirubin < 0.2 (0-0.3) mg/dL AST 16 (<32) U/L ALT 11 (<40) U/L Alkaline Phosphatase 54 (39-117) U/L Ammonia (11-51) umol/L Troponin T (<0.03) ng/mL Total Protein 5.4 L (5.9-8.4) gm/dL Albumin 3.1 L (3.2-5.2) gm/dL Globulin 2.3 (2.2-3.7) gm/dL Lipase 26 (7-60) U/L TSH 6.31 H (0.27-5.01) uIU/mL Urine Color Yellow Urine Appearance Clear (Clear) Urine pH 6.0 (5.0-9.0) Ur Specific [place] 1.010 (1.000-1.035) Urine Protein Negative (Negative) mg/dL Urine Glucose (UA) Negative (Negative) mg/dL Urine Ketones Negative (Negative) mg/dL Urine Occult Blood Trace-lysed A (Negative) lili/mcL Urine Nitrate Negative (Negative) Urine Bilirubin Negative (Negative) mg/dL Urine Urobilinogen Normal mg/dL Ur Leukocyte Esterase Trace A (Negative) /uL Urine RBC 5 H (0-3) /hpf Urine WBC 12 H (0-4) /hpf Ur Squamous Epith Cells 0 (0-4) /hpf Urine Bacteria None (0) /hpf Urine Mucus Few A (None) /hpf Ur Culture Indicated? yes Urine Opiates Screen None detected Ur Opiates Confirm TNP Ur Oxycodone Screen None detected U Oxycod/Oxymor Confirm TNP Urine Methadone Screen None detected Ur Methadone Confirm TNP Ur Barbiturates Screen Suspect positive A Ur Phencyclidine Scrn None detected Urine PCP Confirm TNP Ur Amphetamines Screen None detected U Amphetamines Confirm TNP U Benzodiazepines Scrn None detected Ur Benzodiazepine, Qnt TNP Urine Cocaine Screen None detected Urine Cocaine Confirm TNP U Cannabinoids Confirm TNP U Marijuana (THC) Screen None detected Ethyl Alcohol mg/dL mg/dL Ethyl Alcohol g/dL (<0.010) gm/dL POC Troponin I (0.00-0.08) 04/03/22 Range/Units 18:09 WBC (4.5-11.0) K/mcL RBC (3.59-5.38) M/mcL Hgb (11.2-15.7) g/dL Hct (34.1-44.9) % POC Hct (36-48) MCV (80.0-100.0) fL MCH (26.0-34.0) pg MCHC (31.0-36.0) g/dL RDW (11.5-14.5) % Plt Count (140-440) K/mcL MPV (8.8-12.5) fL Immature Gran % (Auto) (0.0-0.5) % Neut % (Auto) (38.0-78.0) % Lymph % (Auto) (15.5-49.0) % [place] % (Auto) (1.0-12.0) % Eos % (Auto) (0.0-7.0) % Baso % (Auto) (0.0-2.0) % Lymph # (Auto) (1.50-4.80) K/mcL [place] # (Auto) (0.10-0.90) K/mcL Eos # (Auto) (0.00-0.70) K/mcL Baso # (Auto) (0.00-0.30) K/mcL Immature Gran # (0.00-0.05) K/mcl Absolute Neutrophils (1.80-8.00) K/mcL POC VBG pH (7.32-7.42) POC VBG pCO2 at Temp (41-51) POC VBG pO2 (25-40) POC VBG HCO3 (24-28) POC VBG Total CO2 (25-29) POC Venous O2 Sat (40-70) POC VBG Base Excess (-2-2) VBG Lactic Acid (0.5-2) POC Sodium (133-145) POC Potassium (3.3-5.1) POC Chloride (96-108) POC Total CO2 (22-30) POC BUN (6-20) POC Creatinine (0.6-1.2) POC Glucose (70-105) POC WB Ioniz Calcium (1.16-1.32) Total Bilirubin (0.1-1.0) mg/dL Direct Bilirubin (0-0.3) mg/dL AST (<32) U/L ALT (<40) U/L Alkaline Phosphatase (39-117) U/L Ammonia 14 (11-51) umol/L Troponin T (<0.03) ng/mL Total Protein (5.9-8.4) gm/dL Albumin (3.2-5.2) gm/dL Globulin (2.2-3.7) gm/dL Lipase (7-60) U/L TSH (0.27-5.01) uIU/mL Urine Color Urine Appearance (Clear) Urine pH (5.0-9.0) Ur Specific [place] (1.000-1.035) Urine Protein (Negative) mg/dL Urine Glucose (UA) (Negative) mg/dL Urine Ketones (Negative) mg/dL Urine Occult Blood (Negative) lili/mcL Urine Nitrate (Negative) Urine Bilirubin (Negative) mg/dL Urine Urobilinogen mg/dL Ur Leukocyte Esterase (Negative) /uL Urine RBC (0-3) /hpf Urine WBC (0-4) /hpf Ur Squamous Epith Cells (0-4) /hpf Urine Bacteria (0) /hpf Urine Mucus (None) /hpf Ur Culture Indicated? Urine Opiates Screen Ur Opiates Confirm Ur Oxycodone Screen U Oxycod/Oxymor Confirm Urine Methadone Screen Ur Methadone Confirm Ur Barbiturates Screen Ur Phencyclidine Scrn Urine PCP Confirm Ur Amphetamines Screen U Amphetamines Confirm U Benzodiazepines Scrn Ur Benzodiazepine, Qnt Urine Cocaine Screen Urine Cocaine Confirm U Cannabinoids Confirm U Marijuana (THC) Screen Ethyl Alcohol mg/dL mg/dL Ethyl Alcohol g/dL (<0.010) gm/dL POC Troponin I (0.00-0.08) ED POC Tests ED POC Tests: CHRISTOPHER - SARS Antigen Negative Radiology Data Radiology results reviewed: Yes I reviewed the patient's radiology results. Radiology results narrative: CT of the head obtained, agree with radiologist interpretation and the addendum that was added today Core Measures AMI Core Measures Followed: Yes Discharge Plan Patient/Caregiver Discharge Instructions Pt seen by [employer]/PA only: No Clinical Impression: Ischemic stroke of frontal lobe Patient Disposition: Xfer As Outpt/Obs ([facility]) Condition: Fair Follow up with: Chandan Sharpe MD [Primary Care Provider] - Prescriptions: No Action tramadol 50 mg tablet 50 mg PO QID PRN (Reason: pain) Qty: 240 0RF duloxetine [Cymbalta] 30 mg capsule,delayed release(DR/EC) 60 mg PO QDAY Rx Instructions: 30 mg (3 caps) PO daily; baclofen 10 mg tablet 10 mg PO Q8H PRN (Reason: Pain) primidone 50 mg Tablet 50 mg PO TID levothyroxine 137 mcg Tablet 137 mcg PO QDAY trazodone 50 mg Tablet 50 mg PO QHS nitrofurantoin 100 mg Capsule 100 mg PO BID Rx Instructions: must administer with a meal/food hydroxyzine HCl 25 mg Tablet 25 mg PO TID PRN (Reason: Anxiety) allopurinol 300 mg Tablet 300 mg PO QDAY calcium carbonate [Tums] 200 mg calcium (500 mg) Tablet,Chewable 200 mg PO QHS pantoprazole 40 mg Tablet,Delayed Release (Dr/Ec) 40 mg PO QDAY omeprazole 20 mg Capsule,Delayed Release(Dr/Ec) 20 mg PO QDAY
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
[2022-04-06 18:10] LABS: Basophils # (Auto) 0.03 K/mcL (0.00-0.30); Basophils % (Auto) 0.4 % (0.0-2.0); Eosinophils # (Auto) 0.03 K/mcL (0.00-0.70); Eosinophils % (Auto) 0.4 % (0.0-7.0); Hematocrit 34.4 % (34.1-44.9); Hemoglobin 11.5 g/dL (11.2-15.7); Lymphocytes # (Auto) 1.93 K/mcL (1.50-4.80); Lymphocytes % (Auto) 26.2 % (15.5-49.0); Mean Cell Volume 89.8 fL (80.0-100.0); Mean Corpuscular HGB Conc 33.4 g/dL (31.0-36.0); Mean Platelet Volume 10.6 fL (8.8-12.5); Monocytes # (Auto) 0.53 K/mcL (0.10-0.90); Monocytes % (Auto) 7.2 % (1.0-12.0); Neutrophils % (Auto) 65.5 % (38.0-78.0); Platelet Count 276 K/mcL (140-440); RBC 3.83 M/mcL (3.59-5.38); WBC 7.4 K/mcL (4.5-11.0)
[2022-04-06 18:17] LABS: HDL Cholesterol 50 mg/dL (>40); LDL Cholesterol,Calculated 148 mg/dL (<100); Non-HDL Cholesterol 169 mg/dL (<130); Triglycerides 109 mg/dL (<150)
[2022-04-06 18:19] LABS: ALT/SGPT 10 U/L (<40); AST/SGOT 13 U/L (<32); Albumin 3.1 gm/dL (3.2-5.2); Albumin/Globulin Ratio 1.3 (1.0-2.3); Alkaline Phosphatase 56 U/L (39-117); Bilirubin,Total 0.2 mg/dL (0.1-1.0); Blood Urea Nitrogen 6 mg/dL (8-23); Calcium 9.2 mg/dL (8.6-10.4); Carbon Dioxide 28 mmol/L (22-30); Chloride 100 mmol/L (96-108); Globulin 2.3 gm/dL (2.2-3.7); Glomerular Filtration Rate 100; Glucose 94 mg/dL (70-105)
[2022-04-06 18:34] LABS: Estimated Average Glucose(eAG) 111 mg/dL; Hemoglobin A1C 5.5 % Hgb (4.0-6.0)
--- NOTE | 2022-04-06 18:42 | Magnetic Resonance Report ---
History: Recent stroke symptoms a couple days ago and patient was found unresponsive at that time TECHNIQUE: The brain was imaged using stroke protocol FINDINGS: No acute infarct is present. There is no hemorrhage or mass effect. There is a small cortical infarct posteriorly in the left parietal lobe. There are several small scattered high signal lesions in the centrum semiovale in the frontal parietal occipital lobes, seen on the T2 FLAIR pulse sequences. These have no restricted diffusion or mass effect. There is mild atrophy along the upper convexity the brain. The ventricles are normal in size. No abnormal extra-axial fluid collection is present. Allowing for differences in technique there has been relatively little change since the prior head CT done on 04/03/22. IMPRESSION: Small old cortical infarct in the left posterior parietal lobe Mild white matter ischemia or degeneration above the tentorium No acute abnormality Interpreted and Authenticated by: Xavi Martin 04/06/22
[2022-04-06] MEDS ORDERED: ENOXAPARIN 60 MG/0.6 ML SYRINGE SQ SCH ×2 (18:45)
--- NOTE | 2022-04-06 18:55 | Cat Scan Report ---
History: Possible stroke, found unresponsive on 04/03/22, alert and ambulatory now TECHNIQUE: Following injection of intravenous nonionic contrast, arterial phase images were acquired from the ascending aorta to the top of the head. Sagittal, coronal, MIPS and curved linear reformatted images were acquired. The radiation exposure was limited using dose reduction technology. FINDINGS: NECK: There are bilateral pulmonary emboli in both upper lobes. There is also a intermediate sized saddle embolus at the education right main pulmonary artery. The clot extends into the right lower lobe pulmonary artery. Left main pulmonary artery is normal. The upper lobes are clear. The aortic arch is normal in caliber. There are scattered plaques along the wall. There is no aneurysm or dissection. Great vessels arising from the aorta are normal in caliber. There is small amount of calcified plaque in the carotid bifurcations bilaterally. This is not causing stenosis. There is no dissection or thrombosis of the carotids. The vertebral arteries are normal and nearly symmetric. There is no stenosis or thrombosis. Incidentally noted is absence of the right thyroid gland. The left lobe of the thyroid is normal. Brain: Intracranial portions of both the internal carotids and vertebrals are normal. Basilar artery and posterior fossa circulation is normal. The anterior and middle cerebral arteries are normal in caliber and symmetric. There is no large vessel occlusion. No intracranial stenosis is present. There is no plaque in the intracranial vessels. No aneurysm or vascular malformation are present. There is no enhancing lesion. IMPRESSION: Bilateral pulmonary emboli Mild atherosclerotic disease in both carotid bifurcations but without stenosis. Normal intracranial arterial circulation Dr. Palmer was called with the report Interpreted and Authenticated by: Xavi Martin 04/06/22
[2022-04-06] MEDS ORDERED: IOPAMIDOL 100 ML BOTTLE IV ONE (19:02)
[2022-04-06] MEDS ORDERED: ACETAMINOPHEN 325 MG TABLET PO PRN (19:12)
[2022-04-06] MEDS ORDERED: ONDANSETRON 4 MG/2 ML VIAL IV PRN (19:12)
[2022-04-06] MEDS ORDERED: hydrOXYzine 25 MG TABLET PO PRN (19:12)
[2022-04-06] MEDS ORDERED: BACLOFEN 10 MG TABLET PO PRN (19:12)
[2022-04-06] MEDS ORDERED: ENOXAPARIN 60 MG/0.6 ML SYRINGE ONE (19:56)
[2022-04-06] MEDS: SENNOSIDES 1 TABLET PO SCH (20:21)
[2022-04-06] MEDS: ENOXAPARIN 60 MG/0.6 ML SYRINGE SQ SCH (20:21)
[2022-04-06] MEDS: DOCUSATE SODIUM 100 MG CAPSULE PO SCH (20:21)
[2022-04-06] MEDS: CALCIUM CARBONATE 500 MG TAB.CHEW CHEWED SCH (20:25)
[2022-04-06] MEDS: traZODone HCL 50 MG TABLET PO SCH (20:26)
[2022-04-06] MEDS: 0.9 % SODIUM CHLORIDE 10 ML SYRINGE IV SCH (20:26)
[2022-04-07] MEDS: 0.9 % SODIUM CHLORIDE 10 ML SYRINGE IV SCH ×3 (05:26→20:24)
[2022-04-07] MEDS: traMADol 50 MG TABLET PO PRN ×2 (05:57→12:20)
[2022-04-07] MEDS ORDERED: POTASSIUM CHLORIDE 20 MEQ TABLET PO ONE ×2 (07:03→13:45)
--- NOTE | 2022-04-07 07:42 | Ultrasound Report ---
History: Pulmonary emboli, leg edema FINDINGS: There is normal augmentation and compressibility in the deep veins and saphenous vein in both legs from the groin through the calf. Doppler shows normal waveform patterns. IMPRESSION: Normal exam, without evidence of deep venous thrombosis in either leg Interpreted and Authenticated by: Xavi Martin 04/07/22
[2022-04-07] MEDS: LEVOTHYROXINE SODIUM 112 MCG TABLET PO SCH (07:48)
[2022-04-07] MEDS: PANTOPRAZOLE 40 MG TABLET PO SCH (07:48)
[2022-04-07] MEDS: LEVOTHYROXINE 25 MCG TABLET PO SCH (07:48)
[2022-04-07 08:24] LABS: ALT/SGPT 9 U/L (<40); AST/SGOT 11 U/L (<32); Albumin 2.9 gm/dL (3.2-5.2); Albumin/Globulin Ratio 1.5 (1.0-2.3); Alkaline Phosphatase 48 U/L (39-117); Bilirubin,Direct < 0.2 mg/dL (0-0.3); Bilirubin,Total 0.3 mg/dL (0.1-1.0); Blood Urea Nitrogen 4 mg/dL (8-23); Calcium 8.8 mg/dL (8.6-10.4); Carbon Dioxide 30 mmol/L (22-30); Chloride 102 mmol/L (96-108); Glomerular Filtration Rate 100; Glucose 95 mg/dL (70-105); Lactate Dehydrogenase 175 U/L (135-225); Phosphorous 3.7 mg/dL (2.5-4.5); Triglycerides 84 mg/dL (<150); Uric Acid 2.3 mg/dL (2.5-8.0)
[2022-04-07] MEDS: DULoxetine 30 MG CAPSULE PO SCH (08:48)
[2022-04-07] MEDS: ALLOPURINOL 300 MG TABLET PO SCH (08:48)
[2022-04-07] MEDS: DOCUSATE SODIUM 100 MG CAPSULE PO SCH ×2 (08:48→20:24)
[2022-04-07] MEDS: PRIMIDONE 50 MG TABLET PO SCH ×3 (08:48→20:24)
[2022-04-07] MEDS: ENOXAPARIN 60 MG/0.6 ML SYRINGE SQ SCH (08:56)
[2022-04-07] MEDS ORDERED: OMEPRAZOLE 20 MG CAPSULE PO SCH (09:00)
--- NOTE | 2022-04-07 18:07 | Behavioral Health Consult ---
HPI History of Present Illness Patient information: Note initiated : 04/07/22 at 6:06 pm Service Date, if different from initiated Date: [] Patient: Venice Oliveira 66 y/o F admitted on 04/06/22 for unresponsive. Chief Complaint: [] Chief complaint: Name/: Venice Oliveira, 1955 Date/Time (EST): 04-07-2022, 800pm [place] History of present illness: Ms. Oliveira is a 66 year old F PFSH PFSH All Active Problems (Updated 04/06/22 @ 16:40 by Brandon Soler DO) Nausea & vomiting (Acute) Fatigue (Acute) Dyspnea (Acute) Pain in toe (Acute) Adult failure to thrive (Acute) Ischemic stroke of frontal lobe (Acute) Viral syndrome (Acute) Chest pain (Acute) Acute pelvic pain (Acute) Excessive cerumen in both ear canals (Acute) Sinusitis, acute (Acute) Muscle spasm (Acute) Cellulitis of left foot (Acute) Left foot pain (Acute) Rib pain on right side (Acute) Hay fever (Chronic) Anxiety and depression (Chronic) Poor sleep (Chronic) Irritable bowel syndrome (Chronic) Benign hypertension (Chronic) GERD (gastroesophageal reflux disease) (Chronic) Vitamin D deficiency (Chronic) Chronic fatigue syndrome (Chronic) Abnormal weight loss (Chronic) Claudication of both lower extremities (Chronic) Osteoporosis of lumbar spine (Chronic) Dyspareunia (Chronic) Stomatitis (Chronic) Hyperglycemia (Chronic) Right knee pain (Chronic) Migraine (Chronic) Hypoglycemia (Chronic) Anemia (Chronic) Unspecified injury of thorax, initial encounter (Chronic) Bilateral ankle pain (Chronic) Double vision (Chronic) Right carpal tunnel syndrome (Chronic) Fibromyalgia (Chronic) Left eye pain (Chronic) Persistent headaches (Chronic) Acute low back pain (Chronic) Fatigue (Chronic) High risk medication use (Chronic) Chronic pain syndrome (Chronic) Anxiety reaction (Chronic) Pain in joint of right wrist (Chronic) Insomnia (Chronic) Restless leg syndrome (Chronic) Palpitations (Chronic) Prediabetes (Chronic) Hyperlipidemia (Chronic) Eczema (Chronic) B12 deficiency (Chronic) Hx of sleep apnea (Chronic) Memory deficit (Chronic) Dry eye syndrome, bilateral (Chronic) Medical History Abnormal weight loss Acute low back pain Anemia Anxiety and depression Anxiety reaction Arm fracture, left B12 deficiency Benign hypertension Bilateral ankle pain Chest pain Chronic fatigue syndrome Chronic pain syndrome Claudication of both lower extremities Double vision Dry eye syndrome, bilateral Dyspareunia Eczema Excessive cerumen in both ear canals Fatigue Fibromyalgia GERD (gastroesophageal reflux disease) Hay fever High risk medication use History of left heart catheterization (09/24/18) Outpatient, [facility] [place] [facility] Hx of sleep apnea Hyperglycemia Hyperlipidemia Hypoglycemia Insomnia Irritable bowel syndrome Left eye pain Lower abdominal pain Memory deficit Migraine Nausea alone Osteoporosis of lumbar spine Pain in joint of right wrist Pain in right ankle and joints of right foot Palpitations Persistent headaches Poor sleep Prediabetes Restless leg syndrome Right carpal tunnel syndrome Right knee pain Sinusitis, acute Stomatitis Unspecified injury of thorax, initial encounter Viral syndrome Vitamin D deficiency Surgical History History of bladder surgery History of carpal tunnel surgery of left wrist (~2011) History of carpal tunnel surgery of right wrist (~2011) History of gastric bypass (~2007) History of hysterectomy (~1993) Family History Mother , age 74 Osteoporosis Myocardial infarction Father , age 73 High blood pressure Kidney disease Heart disease Grandmother Glaucoma maternal Heart disease maternal High blood pressure maternal Diabetes maternal Social History marital status: occupational status: disabled occupation: disabled due to fibromyalgia, previously worked as [employer] smoking status: Former smoker alcohol intake frequency: does not drink substance use type: does not use additional history: e-cigarettes MEDS/ALLERGIES Home Medications and Allergies Home Medications Medication Instructions Recorded Confirmed Type baclofen 10 mg tablet 10 mg PO Q8H PRN Pain 02/27/19 04/06/22 History duloxetine 30 mg capsule,delayed 60 mg PO QDAY 02/27/19 04/06/22 History release (Cymbalta) tramadol 50 mg tablet 50 mg PO QID PRN pain #240 tabs 03/12/19 04/06/22 Rx allopurinol 300 mg tablet 300 mg PO QDAY 04/03/22 04/06/22 History hydroxyzine HCl 25 mg tablet 25 mg PO TID PRN Anxiety 04/03/22 04/06/22 History levothyroxine 137 mcg tablet 137 mcg PO QDAY 04/03/22 04/06/22 History nitrofurantoin 100 mg capsule 100 mg PO BID 04/03/22 04/06/22 History primidone 50 mg tablet 50 mg PO TID 04/03/22 04/06/22 History trazodone 50 mg tablet 50 mg PO QHS 04/03/22 04/06/22 History calcium carbonate 200 mg calcium 200 mg PO QHS 04/04/22 04/04/22 History (500 mg) chewable tablet (Tums) omeprazole 20 mg capsule,delayed 20 mg PO QDAY 04/05/22 04/06/22 History release pantoprazole 40 mg tablet,delayed 40 mg PO QDAY 04/05/22 04/06/22 History release Allergies Allergy/AdvReac Type Severity Reaction Status Date / Time latex Allergy Mild Rash Verified 04/07/22 13:22 codeine Allergy Unknown Unknown Verified 04/07/22 13:22 hydromorphone [From Dilaudid] Allergy Unknown Unknown Verified 04/07/22 13:22 Opioids - Morphine Analogues Allergy Unknown Unknown Verified 04/07/22 13:22 adhesive AdvReac Mild Rash Verified 04/07/22 13:22 pregabalin [From Lyrica] AdvReac Mild Dizziness, Verified 04/07/22 13:22 confusion Physical Examination Vital Signs Vital signs: Temp Pulse Resp BP Pulse Ox O2 Del Method 98.8 F 80 16 139/79 96 04/07/22 16:01 04/07/22 08:01 04/07/22 16:01 04/07/22 18:01 04/07/22 16:01 04/07/22 16:01 Results Laboratory Findings CBC and BMP: 04/06/22 16:50 04/07/22 07:21 Abnormal lab findings: Abnormal Labs 04/03/22 04/03/22 04/03/22 17:07 17:08 17:27 RBC 3.52 L Hct 32.7 L POC Hct 35.0 L RDW 15.2 H POC VBG HCO3 29.5 H POC VBG Total CO2 31.0 H POC VBG Base Excess 5.0 H* Potassium Anion Gap BUN Creatinine Uric Acid Total Protein Albumin Globulin Cholesterol LDL Cholesterol, Calc Non-HDL Cholesterol TSH Urine Occult Blood Ur Leukocyte Esterase Urine RBC Urine WBC Urine Mucus Ur Barbiturates Screen 04/03/22 04/03/22 04/03/22 17:27 17:32 17:39 RBC Hct POC Hct RDW POC VBG HCO3 POC VBG Total CO2 POC VBG Base Excess Potassium Anion Gap BUN Creatinine Uric Acid Total Protein 5.4 L Albumin 3.1 L Globulin Cholesterol LDL Cholesterol, Calc Non-HDL Cholesterol TSH 6.31 H Urine Occult Blood Trace-lysed A Ur Leukocyte Esterase Trace A Urine RBC 5 H Urine WBC 12 H Urine Mucus Few A Ur Barbiturates Screen Suspect positive A 04/06/22 04/06/22 04/06/22 16:50 16:50 16:50 RBC Hct POC Hct RDW 15.0 H POC VBG HCO3 POC VBG Total CO2 POC VBG Base Excess Potassium 3.1 L Anion Gap BUN 6 L Creatinine 0.5 L Uric Acid Total Protein 5.4 L Albumin 3.1 L Globulin Cholesterol 219 H LDL Cholesterol, Calc 148 H Non-HDL Cholesterol 169 H TSH Urine Occult Blood Ur Leukocyte Esterase Urine RBC Urine WBC Urine Mucus Ur Barbiturates Screen 04/07/22 07:21 RBC Hct POC Hct RDW POC VBG HCO3 POC VBG Total CO2 POC VBG Base Excess Potassium 3.0 L Anion Gap 7.0 L BUN 4 L Creatinine 0.5 L Uric Acid 2.3 L Total Protein 4.9 L Albumin 2.9 L Globulin 2.0 L Cholesterol LDL Cholesterol, Calc Non-HDL Cholesterol TSH Urine Occult Blood Ur Leukocyte Esterase Urine RBC Urine WBC Urine Mucus Ur Barbiturates Screen Microbiology: Microbiology 04/03/22 17:39 Urine - Oliva Urine Culture - Final A/P Time Spent With Patient Time: Total time spent is greater than 50% in coordination of care (as documented) at patient's floor/unit and/or counseling patient:
--- NOTE | 2022-04-07 18:10 | Behavioral Health Consult ---
HPI History of Present Illness Patient information: Note initiated : 04/07/22 at 6:09 pm Service Date, if different from initiated Date: [] Patient: Venice Oliveira 66 y/o F admitted on 04/06/22 for unresponsive. Chief Complaint: [] Chief complaint: Name/: Venice Oliveira, 1955 Date/Time (EST): 04-07-2022, 800pm [place] History of present illness: Name/: Venice Oliveira, 1955 Date/Time (EST):04-07-2022, 800pm Location of patient: [facility] ED Location of doctor:[place] Length of consult: 45 minutes total This evaluation was conducted via telepsychiatry with the assistance of onsite staff. Reason for consult: mental status Requested by: attending physician History of Present Illness: This patient is a Female born in 1955 with a history of depression and anxiety. Her son Shaheen has also reported her having psychotic symptoms including hallucinatory experiences. I saw her on March 31 and please refer to that note for additional information. I spoke with her nurse this evening. He reports that patient had developed a pulmonary embolism was admitted to the hospital. Patient was seen on March by Dr. Manrique and I reviewed that note as well. Patient had had catatonic symptoms earlier and was started on Ativan and had a good response to it. On exam today, patient reports that she feels 100% better. She looks very different from how I saw her on March 31. She is animated, talking, moving freely, with no psychomotor issues. She told me that she remembers being "frozen" before. She told me that her mood is much better. She's reporting feeling back to her old self. She has been sleeping and eating. She told me that she is having some problems going up stairs and has been seen by PT. She told me that she has to go up nine stairs to get into my apartment. She says that she wants to live with Shaheen and that he is taking her into his home when she comes back from the hospital. She apparently has not discussed this with her doctor. She is flatly denying any suicidal ideation. She is pleasant, outgoing, cooperative, calm during exam and looks very different today compared to how she looked on November 3. She is not reporting any side effects from her medicines including EPS or oversedation during the day from the Zyprexa. I asked her if she's been having any hallucinatory experiences over the last few days and she told me know. She does have insight into having these experiences at home. She had been seeing things move around and hospital having other visual type of hallucinations. She is denying having had any of those in the last few days. Upon review the chart it appears that [facility] has seen the patient and made a referral to [facility]. Patient had reported to them that she felt like a prisoner in her home. Current psychiatric medications: When Dr. Manrique saw the patient on April 05, she recommended that patient be restarted on Zyprexa 5 mg nightly. According to the chart, patient had been taking Zyprexa 10 mg nightly back in May of this year. When I reviewed the record, I do not see that the Zyprexa was restarted nightly here in the hospital. There is concern for this as her psychotic symptoms are likely to return without an antipsychotic. I also see in the record that she is not currently taking Ativan. She had responded to it previously during the period of catatonia but had only received a few dosages in the ED. It was not continued on a regular basis. I spoke with her nurse this evening, Cuong, who is also familiar with her from the emergency room. He reports that she is not currently receiving Ativan or Zyprexa on a regular basis and that she had gotten the Ativan only in the emergency room. Mental Status Exam: Appearance and attire: hospital attire Attitude and behavior: Calm, pleasant, cooperative, interactive Motor (movements): No psychomotor retardation Speech: Normal rate, rhythm, tone Affect and mood: mood not depressed, affect euthymic and full range Association and thought processes: Linear, logical goal-directed on exam today Thought content: No SI, no HI, no paranoia Perception: No hallucinations including visual reported Sensorium, memory, and orientation: alert, Oriented grossly, memory is impaired in long-term Intellectual functioning: cannot estimate Insight and judgment: Limited/limited Impression/Risk Assessment: A female born in 1955 what they reported history of depression, presenting with not taking care of herself in the home, decreased PO intake, not taking her medications at home, with son concerned. It was, patient has a pulmonary embolism and she was admitted to internal medicine. I saw her on exam today, she looked very different from how she looked when I saw her on March 31 earlier. She does not appear to be catatonic or psychotic today. She does have memory limitations. She told me that she spoke with her son, Shaheen, and they will resume living together once she leaves the hospital. Her son has concerns about her medication distribution on discharge so that they can keep the medicine straight at home. This is per Cuong, her nurse this evening. Current Suicide Risk elevated? no Current Violence Risk elevated? 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 Patient appears to be doing much better from a psychiatric standpoint. However, when I reviewed the record, she is not taking the antipsychotic nor the Ativan, which were controlling her hallucinations and her catatonic symptoms earlier. Situation is complex. I was unable to reach her son this evening. I think that a family discussion with her son present regarding how patient is doing currently versus a week ago is prudent prior to her leaving the hospital. On my examination, she does not currently meet criteria to admit to inpatient psychiatry. She does not want to be admitted to inpatient psychiatry. She does not meet criteria for involuntary hospitalization at this point. There is concern that she will redevelop her psychotic and catatonic symptoms if she leaves the hospital, however at this point she's not receiving either the Ativan or Zyprexa however is without the symptoms Psychiatric Clearance: no Observation level Continue current Pharmacological: Recommend restart Zyprexa 2.5 mg nightly, if this is okay from a medical standpoint, and monitor for psychotic relapse when she goes home. Also recommend Ativan 1 mg PO every eight hours as needed at home for catatonic symptoms. Patient is aware of benzodiazepine side effects including sedation and increased likelihood of falls. The Ativan should only be used sparingly in situations where she is catatonic. She would also need to be brought back to the hospital if this occurs. Psychotic: Not currently Standing antipsychotic started: Zyprexa should be restarted as discussed above at a lower dose at bedtime for discharge to home with outpatient psychiatric follow-up established by case management Therapy: supportive Follow up needed by [facility] while in hospital: Please have her seen tomorrow morning. Discussed with onsite prepared foods production team member? Yes, nurse Cuong, as discussed above. Please contact [facility] for any additional assistance or questions. Toño Swenson M.D. Psychiatrist [facility] All Active Problems (Updated 04/06/22 @ 16:40 by Brandon Soler DO) Nausea & vomiting (Acute) Fatigue (Acute) Dyspnea (Acute) Pain in toe (Acute) Adult failure to thrive (Acute) Ischemic stroke of frontal lobe (Acute) Viral syndrome (Acute) Chest pain (Acute) Acute pelvic pain (Acute) Excessive cerumen in both ear canals (Acute) Sinusitis, acute (Acute) Muscle spasm (Acute) Cellulitis of left foot (Acute) Left foot pain (Acute) Rib pain on right side (Acute) Hay fever (Chronic) Anxiety and depression (Chronic) Poor sleep (Chronic) Irritable bowel syndrome (Chronic) Benign hypertension (Chronic) GERD (gastroesophageal reflux disease) (Chronic) Vitamin D deficiency (Chronic) Chronic fatigue syndrome (Chronic) Abnormal weight loss (Chronic) Claudication of both lower extremities (Chronic) Osteoporosis of lumbar spine (Chronic) Dyspareunia (Chronic) Stomatitis (Chronic) Hyperglycemia (Chronic) Right knee pain (Chronic) Migraine (Chronic) Hypoglycemia (Chronic) Anemia (Chronic) Unspecified injury of thorax, initial encounter (Chronic) Bilateral ankle pain (Chronic) Double vision (Chronic) Right carpal tunnel syndrome (Chronic) Fibromyalgia (Chronic) Left eye pain (Chronic) Persistent headaches (Chronic) Acute low back pain (Chronic) Fatigue (Chronic) High risk medication use (Chronic) Chronic pain syndrome (Chronic) Anxiety reaction (Chronic) Pain in joint of right wrist (Chronic) Insomnia (Chronic) Restless leg syndrome (Chronic) Palpitations (Chronic) Prediabetes (Chronic) Hyperlipidemia (Chronic) Eczema (Chronic) B12 deficiency (Chronic) Hx of sleep apnea (Chronic) Memory deficit (Chronic) Dry eye syndrome, bilateral (Chronic) Medical History Abnormal weight loss Acute low back pain Anemia Anxiety and depression Anxiety reaction Arm fracture, left B12 deficiency Benign hypertension Bilateral ankle pain Chest pain Chronic fatigue syndrome Chronic pain syndrome Claudication of both lower extremities Double vision Dry eye syndrome, bilateral Dyspareunia Eczema Excessive cerumen in both ear canals Fatigue Fibromyalgia GERD (gastroesophageal reflux disease) Hay fever High risk medication use History of left heart catheterization (09/24/18) Outpatient, [facility] Hx of sleep apnea Hyperglycemia Hyperlipidemia Hypoglycemia Insomnia Irritable bowel syndrome Left eye pain Lower abdominal pain Memory deficit Migraine Nausea alone Osteoporosis of lumbar spine Pain in joint of right wrist Pain in right ankle and joints of right foot Palpitations Persistent headaches Poor sleep Prediabetes Restless leg syndrome Right carpal tunnel syndrome Right knee pain Sinusitis, acute Stomatitis Unspecified injury of thorax, initial encounter Viral syndrome Vitamin D deficiency Surgical History History of bladder surgery History of carpal tunnel surgery of left wrist (~2011) History of carpal tunnel surgery of right wrist (~2011) History of gastric bypass (~2007) History of hysterectomy (~1993) Family History Mother , age 74 Osteoporosis Myocardial infarction Father , age 73 High blood pressure Kidney disease Heart disease Grandmother Glaucoma maternal Heart disease maternal High blood pressure maternal Diabetes maternal Social History marital status: occupational status: disabled occupation: disabled due to fibromyalgia, previously worked as [employer] smoking status: Former smoker alcohol intake frequency: does not drink substance use type: does not use additional history: e-cigarettes MEDS/ALLERGIES Home Medications and Allergies Home Medications Medication Instructions Recorded Confirmed Type baclofen 10 mg tablet 10 mg PO Q8H PRN Pain 02/27/19 04/06/22 History duloxetine 30 mg capsule,delayed 60 mg PO QDAY 02/27/19 04/06/22 History release (Cymbalta) tramadol 50 mg tablet 50 mg PO QID PRN pain #240 tabs 03/12/19 04/06/22 Rx allopurinol 300 mg tablet 300 mg PO QDAY 04/03/22 04/06/22 History hydroxyzine HCl 25 mg tablet 25 mg PO TID PRN Anxiety 04/03/22 04/06/22 History levothyroxine 137 mcg tablet 137 mcg PO QDAY 04/03/22 04/06/22 History nitrofurantoin 100 mg capsule 100 mg PO BID 04/03/22 04/06/22 History primidone 50 mg tablet 50 mg PO TID 04/03/22 04/06/22 History trazodone 50 mg tablet 50 mg PO QHS 04/03/22 04/06/22 History calcium carbonate 200 mg calcium 200 mg PO QHS 04/04/22 04/04/22 History (500 mg) chewable tablet (Tums) omeprazole 20 mg capsule,delayed 20 mg PO QDAY 04/05/22 04/06/22 History release pantoprazole 40 mg tablet,delayed 40 mg PO QDAY 04/05/22 04/06/22 History release Allergies Allergy/AdvReac Type Severity Reaction Status Date / Time latex Allergy Mild Rash Verified 04/07/22 13:22 codeine Allergy Unknown Unknown Verified 04/07/22 13:22 hydromorphone [From Dilaudid] Allergy Unknown Unknown Verified 04/07/22 13:22 Opioids - Morphine Analogues Allergy Unknown Unknown Verified 04/07/22 13:22 adhesive AdvReac Mild Rash Verified 04/07/22 13:22 pregabalin [From Lyrica] AdvReac Mild Dizziness, Verified 04/07/22 13:22 confusion Physical Examination Vital Signs Vital signs: Temp Pulse Resp BP Pulse Ox O2 Del Method 98.8 F 80 16 139/79 96 04/07/22 16:01 04/07/22 08:01 04/07/22 16:01 04/07/22 18:01 04/07/22 16:01 04/07/22 16:01 Results Laboratory Findings CBC and BMP: 04/06/22 16:50 04/07/22 07:21 Abnormal lab findings: Abnormal Labs 04/03/22 04/03/22 04/03/22 17:07 17:08 17:27 RBC 3.52 L Hct 32.7 L POC Hct 35.0 L RDW 15.2 H POC VBG HCO3 29.5 H POC VBG Total CO2 31.0 H POC VBG Base Excess 5.0 H* Potassium Anion Gap BUN Creatinine Uric Acid Total Protein Albumin Globulin Cholesterol LDL Cholesterol, Calc Non-HDL Cholesterol TSH Urine Occult Blood Ur Leukocyte Esterase Urine RBC Urine WBC Urine Mucus Ur Barbiturates Screen 04/03/22 04/03/22 04/03/22 17:27 17:32 17:39 RBC Hct POC Hct RDW POC VBG HCO3 POC VBG Total CO2 POC VBG Base Excess Potassium Anion Gap BUN Creatinine Uric Acid Total Protein 5.4 L Albumin 3.1 L Globulin Cholesterol LDL Cholesterol, Calc Non-HDL Cholesterol TSH 6.31 H Urine Occult Blood Trace-lysed A Ur Leukocyte Esterase Trace A Urine RBC 5 H Urine WBC 12 H Urine Mucus Few A Ur Barbiturates Screen Suspect positive A 04/06/22 04/06/22 04/06/22 16:50 16:50 16:50 RBC Hct POC Hct RDW 15.0 H POC VBG HCO3 POC VBG Total CO2 POC VBG Base Excess Potassium 3.1 L Anion Gap BUN 6 L Creatinine 0.5 L Uric Acid Total Protein 5.4 L Albumin 3.1 L Globulin Cholesterol 219 H LDL Cholesterol, Calc 148 H Non-HDL Cholesterol 169 H TSH Urine Occult Blood Ur Leukocyte Esterase Urine RBC Urine WBC Urine Mucus Ur Barbiturates Screen 04/07/22 07:21 RBC Hct POC Hct RDW POC VBG HCO3 POC VBG Total CO2 POC VBG Base Excess Potassium 3.0 L Anion Gap 7.0 L BUN 4 L Creatinine 0.5 L Uric Acid 2.3 L Total Protein 4.9 L Albumin 2.9 L Globulin 2.0 L Cholesterol LDL Cholesterol, Calc Non-HDL Cholesterol TSH Urine Occult Blood Ur Leukocyte Esterase Urine RBC Urine WBC Urine Mucus Ur Barbiturates Screen Microbiology: Microbiology 04/03/22 17:39 Urine - Oliva Urine Culture - Final A/P Time Spent With Patient Time: Total time spent is greater than 50% in coordination of care (as documented) at patient's floor/unit and/or counseling patient:
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
[2022-04-07] MEDS ORDERED: LORazepam 1 MG TABLET PO PRN (18:23)
[2022-04-07] MEDS: CALCIUM CARBONATE 500 MG TAB.CHEW CHEWED SCH (20:23)
[2022-04-07] MEDS: APIXABAN 5 MG TABLET PO SCH (20:23)
[2022-04-07] MEDS: traZODone HCL 50 MG TABLET PO SCH (20:23)
[2022-04-07] MEDS: SENNOSIDES 1 TABLET PO SCH (20:24)
[2022-04-07] MEDS ORDERED: OLANZapine 2.5 MG TABLET PO SCH (21:00)
[2022-04-08] MEDS: 0.9 % SODIUM CHLORIDE 10 ML SYRINGE IV SCH (05:34)
[2022-04-08 07:58] LABS: ALT/SGPT 9 U/L (<40); AST/SGOT 11 U/L (<32); Albumin 2.8 gm/dL (3.2-5.2); Albumin/Globulin Ratio 1.6 (1.0-2.3); Alkaline Phosphatase 51 U/L (39-117); Bilirubin,Direct < 0.2 mg/dL (0-0.3); Bilirubin,Total 0.3 mg/dL (0.1-1.0); Blood Urea Nitrogen 4 mg/dL (8-23); Calcium 8.6 mg/dL (8.6-10.4); Carbon Dioxide 26 mmol/L (22-30); Chloride 103 mmol/L (96-108); Globulin 1.8 gm/dL (2.2-3.7); Glomerular Filtration Rate 100; Glucose 75 mg/dL (70-105); Lactate Dehydrogenase 191 U/L (135-225); Phosphorous 3.5 mg/dL (2.5-4.5); Triglycerides 93 mg/dL (<150)
[2022-04-08] MEDS: LEVOTHYROXINE SODIUM 112 MCG TABLET PO SCH (08:15)
[2022-04-08] MEDS: PANTOPRAZOLE 40 MG TABLET PO SCH (08:15)
[2022-04-08] MEDS: ALLOPURINOL 300 MG TABLET PO SCH (08:15)
[2022-04-08] MEDS: APIXABAN 5 MG TABLET PO SCH (08:15)
[2022-04-08] MEDS: LEVOTHYROXINE 25 MCG TABLET PO SCH (08:15)
[2022-04-08] MEDS: PRIMIDONE 50 MG TABLET PO SCH (08:15)
[2022-04-08] MEDS: DULoxetine 30 MG CAPSULE PO SCH (08:16)
[2022-04-08] MEDS: DOCUSATE SODIUM 100 MG CAPSULE PO SCH (08:16)
--- NOTE | 2022-04-08 10:02 | Cat Scan Report ---
History: Pulmonary emboli of undetermined etiology, possible paraneoplastic syndrome, unresponsive, evaluate for occult malignancy TECHNIQUE: The patient was imaged following injection of intravenous contrast scanning during the portal venous phase from above the thoracic inlet through the symphysis pubis. Delayed excretory phase images of the upper abdomen were acquired. Sagittal and coronal reformats were created. The radiation exposure was limited using dose reduction technology. FINDINGS: Chest: There are a few pulmonary emboli. The largest is at the bifurcation of the right main pulmonary artery and measures 1.8 cm in length. There are smaller clots in the upper lobes. Due to the portal venous phase imaging, there is suboptimal opacification of the pulmonary arteries. The visualized clots have not changed since the time of the prior CT angiogram of the neck performed on 04/06/22. There are linear bands of scar tissue bilaterally. There is no evidence of a lung mass or pneumonia. No pleural effusion is present. There are no enlarged lymph nodes. The heart size is normal. There are few calcified plaques in the coronary arteries and aortic arch. The aorta is normal in caliber. Abdomen and pelvis: There is a lobulated low-attenuation cystic lesion located high and posteriorly in segment eight of the right lobe of the liver. It measures 3.5 x 3.6 cm. It has a density 21 Hounsfield units during the portal venous phase and 18 Hounsfield units on the delayed images. This has been present for several years and has not enlarged. This may be a cyst and less likely an atypical hemangioma. The liver is otherwise normal without evidence of neoplasm. The gallbladder has been removed. Common bile duct measures up to 5.5 mm. No stone is seen within the duct. There is a diverticulum containing air along the medial side of the second portion of the duodenum. The pancreas is normal without evidence of a mass or inflammation. The spleen is normal. There are postsurgical changes around the stomach consistent with prior gastric reduction surgery. There is no inflammation at this level. The adrenals and kidneys are normal. There is no renal mass stone or hydronephrosis. No mass or adenopathy are present within the abdomen or pelvis. The bowel pattern is normal. The uterus is been removed and neither ovary is identified. No ascites is present. Spine has a moderate kyphotic curvature. There are multiple old compression fractures. There are moderately severe biconcave compression fractures at L3 and L4 and there are moderate compression fractures involving the superior endplates of T10 and L1. No lytic or blastic bone lesion are present. IMPRESSION: Pulmonary emboli bilaterally with the largest located at the bifurcation of the right main pulmonary artery No evidence of neoplasm within the chest abdomen or pelvis Compression fractures in the thoracic and lumbar spine which may be related to osteoporosis Stable cystic lesion in the right lobe of the liver Interpreted and Authenticated by: Xavi Martin 04/08/22
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
[2022-04-08] MEDS: traMADol 50 MG TABLET PO PRN (11:51)
[2022-04-15] MEDS ORDERED: APIXABAN 5 MG TABLET PO SCH (09:00)
== END 2022-04-08 14:35 | disposition home health service (06) ==
LOC: ED 16:46 → ICU 16:46
PROVIDERS: ADMIT Internal Medicine; ATTEND Internal Medicine